=== PATIENT | female | born 1935 | race Caucasian/White ===

== ENCOUNTER 2016-07-09 09:45 | Inpatient (IN) | payer MEDICARE, OTHER ==
[~2016-07-09] VITALS: Ht 160 cm; Wt 59.0 kg
[~2016-07-09 09:45] MED LIST: ASPIR 8181 MG ORAL; BENICAR20 MG ORAL; CIPRO500 MG PO; COLACE100 MG ORAL; DONEPEZIL HCL5 MG PO; FLAGYL500 MG ORAL; MILK OF MA400 MG/51 ORAL; MIRTAZAPINE15 MG ORAL; MOM30 ML ORAL; NAMENDA XR28 MG PO; NORCO 5-325 TA1 EACH ORAL; PRIMIDONE50 MG PO; RESTORIL15 MG ORAL; SIMVASTATIN10 MG ORAL; TENORMIN25 MG ORAL; TYLENOL325 MG ORAL
[2016-07-09 10:00] VITALS: BP 121/98
[2016-07-09] MEDS ORDERED: ATORVASTATIN CA20 MG ORAL (10:00)
[2016-07-09] MEDS ORDERED: NUEDEXTA 20-101 EAC1 PO (10:02)
[2016-07-09] MEDS ORDERED: MELATONIN3 M1 ORAL (10:02)
[2016-07-09] MEDS ORDERED: ZOFRAN8 MG ORAL (10:02)
[2016-07-09] MEDS ORDERED: MULTIVITAMINS1 EAC8 ORAL (10:02)
[2016-07-09] MEDS ORDERED: LAMICTAL25 MG ORAL (10:02)
[2016-07-09] MEDS ORDERED: LORazepam Inj 2mg/ml 1ml ONE (10:27)
[2016-07-09] MEDS ORDERED: LORazepam Inj 2mg/ml 1ml IM ONE (10:30)
[2016-07-09 11:11] LABS: EOSINOPHILS % (AUTO) 2.5 % (0.0-3.0); LYMPHOCYTES % (AUTO) 27.3 % (20.0-45.0); MEAN CORPUSCULAR HGB CONC 32.1 G/DL (32.0-36.0); MEAN CORPUSCULAR VOLUME 87 FL (80-99); MONOCYTES % (AUTO) 8.6 % (1.0-10.0); NEUTROPHILS % (AUTO) 60.6 % (45.0-75.0); PLATELET COUNT 420 K/UL (150-450); RED BLOOD COUNT 4.44 M/UL (4.20-5.40); RED CELL DISTRIBUTION WIDTH 12.1 % (11.6-14.8); WHITE BLOOD COUNT 6.3 K/UL (4.8-10.8)
[2016-07-09 11:13] LABS: PROTHROMBIN TIME 9.8 SEC (9.30-11.50)
[2016-07-09 11:18] LABS: REFLEX LACTIC ACID YES OR NO YES
[2016-07-09 11:20] LABS: TROPONIN I < 0.30 ng/mL (<=0.30)
--- NOTE | 2016-07-09 11:21 | Diagnostic Imaging Report ---
Indication: pain Findings: 3 views of the left hand were obtained. The bones are osteopenic. There is no fracture or malalignment identified. Soft tissues are unremarkable. In pression: No acute injury
--- NOTE | 2016-07-09 11:21 | Diagnostic Imaging Report ---
Indication: Chest Pain Comparison: 09/01/14 A single view chest radiograph was obtained. Findings: The lungs are clear. Cardiomegaly status lower is within normal limits. Bones are osteopenic. Impression: No acute disease
[2016-07-09 11:23] LABS: ALANINE AMINOTRANSFERASE 12 U/L (3-33); ALBUMIN/GLOBULIN RATIO 1.2 (1.0-2.7); ANION GAP 13 (5-15); ASPARTATE AMINO TRANSFERASE 15 U/L (5-40); CALCIUM 9.6 mg/dL (8.6-10.2); CARBON DIOXIDE 28 mEQ/L (20-30); CHLORIDE 102 mEQ/L (98-107); CREATININE 0.8 mg/dL (0.5-0.9); HEMOLYSIS 5; POTASSIUM 4.8 mEQ/L (3.4-4.9); SODIUM 143 mEQ/L (135-145); TOTAL PROTEIN 7.2 g/dL (6.6-8.7)
[2016-07-09 11:47] LABS: APPEARANCE,URINE CLOUDY; KETONES,URINE NEGATIVE (NEGATIVE); LEUKOCYTE ESTERASE ,URINE NEGATIVE (NEGATIVE); NITRITE,URINE NEGATIVE (NEGATIVE); PH,URINE 6 (4.5-8.0); PROTEIN,URINE NEGATIVE (NEGATIVE); UROBILINOGEN,URINE NORMAL MG/DL (0.0-1.0)
[2016-07-09 12:24] VITALS: BP 113/52
--- NOTE | 2016-07-09 14:08 | Emergency Room Report ---
History of Present Illness General Chief Complaint: Upper Extremity Injury Source: Medical Record, EMS, PMD Present Illness HPI The [facility] for the possibility of having a cellulitis or injury to her left hand. This is noted that a couple days ago. Uncertain as to how this arose. The patient is demented and unable history. His nuclear documentation of how this might have occurred. No history of fever. Prior h/o sepsis and dementia. Allergies: Coded Allergies: LORAZEPAM (Verified Allergy, Unknown, 07/09/16) Patient History Limited by: medical condition Past Medical History: see triage record Social History Narrative longterm facility Reviewed Nursing Documentation: PMH: Agreed, PSxH: Agreed Nursing Documentation-PMH Hx Cardiac Problems: Yes - DVT, Edema, Anemia, hyperlipidemia Hx Hypertension: Yes - Cataract Hx Diabetes: Yes Hx Cancer: No Hx Gastrointestinal Problems: Yes - GERD Hx Neurological Problems: Yes - muscle weakness Hx Dementia: Yes Hx Alzheimer's Disease: Yes Hx Dizziness: Yes Hx Weakness: Yes Review of Systems All Other Systems: limited Physical Exam Vital Signs Date Time Temp Pulse Resp B/P Pulse Ox O2 Delivery O2 Flow Rate FiO2 07/09/16 09:40 98.8 82 22 119/66 99 Room Air Sp02 EP Interpretation: reviewed, normal General Appearance: well appearing, no apparent distress, Chronically Ill Head: normocephalic Eyes: bilateral eye PERRL, bilateral eye normal inspection ENT: moist mucus membranes - poor dentition Neck: supple Respiratory: lungs clear, normal breath sounds Cardiovascular #1: regular rate, rhythm Cardiovascular #2: 2+ radial (R) Gastrointestinal: normal inspection, normal bowel sounds, non tender, no mass, non-distended Musculoskeletal: digits/nails normal - except L hand li, normal range of motion , other - atrophy LE, but good ROM Neurologic: motor strength/tone normal, sensory intact, cerebellar normal Psychiatric: anxious - gibberish and combative with staff Skin: hematoma - and ecchymoses 4th and 5th MCP and little finger Medical Decision Making Diagnostic Impression: Primary Impression: Contusion of left hand Qualified Codes: S60.222A - Contusion of left hand, initial encounter Additional Impression: Dementia Qualified Codes: F03.91 - Unspecified dementia with behavioral disturbance ER Course Patient with hand physical findings. Unable to give hx so complicated. DDx: fracture, contusion, cellulitis. Xrays and labs indicated. Patient required sedation in order to complete the tests. She responded well to Ativan 2 mg IM. Laboratory significant for a lactate of which 2.1 with a normal white count. X- rays were unremarkable. The patient remained clinically stable in the emergency department. Dr. Dominguez requested patient be observed for orthopedic and infectious disease consultation. Laboratory Tests Test 07/09/16 10:35 07/09/16 11:20 White Blood Count 6.3 K/UL (4.8-10.8) Red Blood Count 4.44 M/UL (4.20-5.40) Hemoglobin 12.4 G/DL (12.0-16.0) Hematocrit 38.6 % (37.0-47.0) Mean Corpuscular Volume 87 FL (80-99) Mean Corpuscular Hemoglobin 28.0 PG (27.0-31.0) Mean Corpuscular Hemoglobin Concent 32.1 G/DL (32.0-36.0) Red Cell Distribution Width 12.1 % (11.6-14.8) Platelet Count 420 K/UL (150-450) Mean Platelet Volume 7.0 FL (6.5-10.1) Neutrophils (%) (Auto) 60.6 % (45.0-75.0) Lymphocytes (%) (Auto) 27.3 % (20.0-45.0) Monocytes (%) (Auto) 8.6 % (1.0-10.0) Eosinophils (%) (Auto) 2.5 % (0.0-3.0) Basophils (%) (Auto) 1.0 % (0.0-2.0) Prothrombin Time 9.8 SEC (9.30-11.50) Prothrombin Time INR 1.0 (0.9-1.1) Sodium Level 143 mEQ/L (135-145) Potassium Level 4.8 mEQ/L (3.4-4.9) Chloride Level 102 mEQ/L (98-107) Carbon Dioxide Level 28 mEQ/L (20-30) Anion Gap 13 (5-15) Blood Urea Nitrogen 17 mg/dL (7-23) Creatinine 0.8 mg/dL (0.5-0.9) Estimate Glomerular Filtration Rate mL/min (>60) Glucose Level 91 mg/dL (74-106) Lactic Acid Level 2.10 mmol/L (0.66-2.22) Calcium Level 9.6 mg/dL (8.6-10.2) Total Bilirubin < 0.2 mg/dL (0.0-1.2) Aspartate Amino Transferase (AST) 15 U/L (5-40) Alanine Aminotransferase (ALT) 12 U/L (3-33) Alkaline Phosphatase 130 U/L (35-104) H Total Creatine Kinase 66 U/L (26-140) Troponin I < 0.30 ng/mL (<=0.30) Total Protein 7.2 g/dL (6.6-8.7) Albumin 4.0 g/dL (3.5-5.2) Globulin 3.2 g/dL Albumin/Globulin Ratio 1.2 (1.0-2.7) Hepatitis B Surface Antigen Pending Hepatitis C Antibody Pending HIV (1&2) Antibody Rapid Negative (NEGATIVE) Urine Color Yellow Urine Appearance Cloudy Urine pH 6 (4.5-8.0) Urine Specific [place] 1.020 (1.005-1.035) Urine Protein Negative (NEGATIVE) Urine Glucose (UA) Negative (NEGATIVE) Urine Ketones Negative (NEGATIVE) Urine Occult Blood Negative (NEGATIVE) Urine Nitrite Negative (NEGATIVE) Urine Bilirubin Negative (NEGATIVE) Urine Urobilinogen Normal MG/DL (0.0-1.0) Urine Leukocyte Esterase Negative (NEGATIVE) EKG Diagnostic Results Rate: normal Rhythm: NSR ST Segments: no acute changes Rhythm Strip Diag. Results EP Interpretation: yes Rhythm: NSR, no PVC's, no ectopy Chest X-Ray Diagnostic Results EP Interpretation: Yes Findings: no consolidation, no effusion, no pneumothorax, no acute cardiopulmonary disease Number of Views: 1 Other X-Ray Diagnostic Results Other X-Ray Diagnostic Results : X-Ray Ordered: L hand EP Interpretation: Yes Findings: no fractures, no dislocation, no soft tissue swelling, other - osteopenia and DJD Number of Views: 3 Last Vital Signs Date Time Temp Pulse Resp B/P Pulse Ox O2 Delivery O2 Flow Rate FiO2 07/10/16 00:00 98.2 87 20 147/88 98 Room Air Status: improved Disposition: PLACE IN OBSERVATION Condition: Improved Referrals: NON PHYSICIAN (PCP) Americo Andrade M.D. Jul 09, 2016 14:08
[2016-07-09 14:17] VITALS: BP 110/62
[2016-07-09] MEDS ORDERED: Mylanta II UD 30ml ORAL PRN (16:45)
[2016-07-09] MEDS ORDERED: LORazepam Inj 2mg/ml 1ml IV PRN (16:45)
[2016-07-09] MEDS ORDERED: Morphine Sulfate 2mg/ml Inj IVP PRN (16:45)
[2016-07-09] MEDS ORDERED: Zolpidem 5mg tab ORAL PRN (16:45)
[2016-07-09 17:36] VITALS: BP 123/64
[2016-07-09 20:00] VITALS: BP 108/80
--- NOTE | 2016-07-09 20:48 | History and Physical Report ---
DATE OF ADMISSION: 07/09/2016 HISTORY OF PRESENT ILLNESS: The patient is a poor historian. She is an Faroese originally and she cannot speak Surinamese. She is very confused and agitated, which is her baseline. The patient is admitted for possible left hand cellulitis versus injury or trauma. Again, I cannot obtain history, she is a very poor historian. PAST MEDICAL HISTORY: History of hypertension, history of NIDDM, history of underlying hyperlipidemia, GERD, psychosis, dementia, mood disorder, and gastroparesis. PAST SURGICAL HISTORY: History of PEG in the past. MEDICATIONS: Please see medication list in the chart. ALLERGIES: Refer to in the chart. SOCIAL HISTORY: Unable to obtain. FAMILY HISTORY: Noncontributory. REVIEW OF SYSTEM: Unable to obtain. PHYSICAL EXAMINATION: VITAL SIGNS: . HEENT: PERRLA. NECK: Supple. No lymphadenopathy. CHEST: Clear to auscultation. GI: Soft. Distended, however nontender. Positive bowel sounds. The patient does have tumescence and redness and tender to touch on the left hand. EXTREMITIES: A 1+ edema. Reflexes are equal on both sides. NEUROLOGIC: Nonfocal. LABORATORY DATA: Labs are essentially normal. ASSESSMENT: 1. Cellulitis of the left hand versus injury versus trauma. 2. Agitation. PLAN: I have asked Dr. Garber and Dr. Bowden to see the patient for the above-mentioned diagnoses and treatment. Дмитрий Dominguez M.D. DR: SIMON JOB#: [id number] CC:
[2016-07-09] MEDS: Heparin 5000 units/ml inj SUBQ SCH (21:00)
[2016-07-09] MEDS: Docusate 100mg cap ORAL SCH (21:47)
[2016-07-10] VITALS: BP 147/88
--- NOTE | 2016-07-10 00:18 | Consultation ---
DATE OF CONSULTATION: INFECTIOUS DISEASES CONSULTATION CONSULTING PHYSICIAN: Stephanie Bowden M.D. REQUESTING PHYSICIAN: Дмитрий Dominguez M.D. REASON FOR CONSULTATION: Left hand cellulitis, recommendation for antibiotics therapy. HISTORY OF PRESENT ILLNESS: The patient is a 80-year-old jail resident, who was sent for possibility of having cellulitis or injury to her left hand, which noted couple of days ago. It is unclear how this patient sustained that left hand injury. The patient is demented, cannot provide any history at this point. History was obtained from the medical record. In the emergency room, the patient had some bruises and bluish discoloration of the left pinky and the second digit. Her vitals looked okay. She had normal white count. X-ray of the left hand was unremarkable. The patient was admitted to the hospital for evaluation of left hand contusion with possible cellulitis. I was asked by the primary provider for antibiotics treatment for her left hand ecchymosis or bruises and possible cellulitis. PAST MEDICAL HISTORY: Significant for coronary artery disease, DVT, edema, anemia, hyperlipidemia, cataract, hypertension, diabetes, gastroesophageal reflux disease, dementia with Alzheimer's, and weakness. PAST SURGICAL HISTORY: Unknown. ALLERGIES: She is allergic to lorazepam. MEDICATIONS: Please refer to the [facility] for medication list. No antibiotics was given in the emergency room. REVIEW OF SYSTEMS: Unable to obtain. The patient is demented, cannot provide any history. PHYSICAL EXAMINATION: GENERAL: Elderly female, demented, speaking in her own language, up in bed, confused, not in distress. VITAL SIGNS: Temperature 98, pulse 80, respirations 17, blood pressure 110/62, and pulse oximetry 100% on room air. HEENT: Normocephalic and atraumatic. Pale sclera. Moist oral mucosa. No exudate or thrush. NECK: Supple. No lymphadenopathy. CARDIOVASCULAR: Regular rate and rhythm. No murmur or gallop. LUNGS: Clear bilaterally. No wheezing or rhonchi. Normal breathing efforts. ABDOMEN: Soft, nontender, and nondistended. Positive bowel sounds. No hepatosplenomegaly. EXTREMITIES: No edema. No cyanosis. Left hand fourth and fifth digit ecchymosis and bruises. No redness, erythema, or warmth and no swelling. LABORATORY DATA: Labs showed white count of 6.3, hemoglobin of 12.4, and platelet count of 420,000. BUN of 17, creatinine of 0.8. Alkaline phosphatase of 130. Serology showed human immunodeficiency virus screening negative. IMAGING DATA: Hand x-ray showed no acute injury. Chest x-ray showed no acute disease. ASSESSMENT AND PLAN: 1. Left hand injury with bruises and ecchymosis. No evidence of cellulitis at this point. No need for antibiotics therapy. Continue to monitor in the hospital for the next 24 hours. May need orthopedic evaluation or Vascular if she has worsening discoloration or ischemic changes. 2. Coronary artery disease with hypertension. Continue cardiac medications as before. 3. Diabetes. Recommend tight glycemic control to keep blood sugar between 80 to 120. 4. Gastroesophageal reflux disease. Continue proton pump inhibitor. 5. Dementia. Continue supportive care. Stephanie Bowden M.D. DR: LOREN JOB#: [id number] CC:
[2016-07-10 04:00] VITALS: BP 144/96
[2016-07-10 08:00] VITALS: BP 134/74
[2016-07-10] MEDS: Aspirin EC 81mg tab ORAL SCH (08:10)
[2016-07-10] MEDS: Docusate 100mg cap ORAL SCH ×2 (08:11→20:34)
[2016-07-10] MEDS: Atenolol 25mg tab ORAL SCH (08:11)
[2016-07-10] MEDS: Heparin 5000 units/ml inj SUBQ SCH ×2 (08:22→20:39)
--- NOTE | 2016-07-10 11:07 | General Progress Note ---
Assessment/Plan Problem List: (1) Cellulitis ICD Codes: L03.90 - Cellulitis, unspecified SNOMED: 808169520 (2) Contusion of left hand ICD Codes: S60.222A - Contusion of left hand, initial encounter SNOMED: 6229288 Qualifiers: Qualified Codes: S60.222A - Contusion of left hand, initial encounter (3) Dementia ICD Codes: F03.90 - Unspecified dementia without behavioral disturbance SNOMED: 58083843 Qualifiers: Qualified Codes: F03.91 - Unspecified dementia with behavioral disturbance (4) Anxiety ICD Codes: F41.9 - Anxiety disorder, unspecified SNOMED: 71015560 (5) Anemia ICD Codes: D64.9 - Anemia, unspecified SNOMED: 977613924 Status: progressing Assessment/Plan cellulitis of left hand vs contusion will discuss w id Subjective ROS Limited/Unobtainable: Yes Allergies: Coded Allergies: LORAZEPAM (Verified Allergy, Unknown, 07/09/16) Objective Last 24 Hour Vital Signs Date Time Temp Pulse Resp B/P Pulse Ox O2 Delivery O2 Flow Rate FiO2 07/10/16 08:11 78 144/96 07/10/16 08:00 97.9 73 19 134/74 94 Nasal Cannula 07/10/16 04:00 98.2 78 22 144/96 97 Room Air 07/10/16 00:00 98.2 87 20 147/88 98 Room Air 07/09/16 20:00 97.6 101 16 108/80 99 Room Air 07/09/16 17:36 97.8 76 20 123/64 95 Room Air 07/09/16 15:24 98.0 80 17 110/62 100 Room Air 07/09/16 14:17 80 17 110/62 100 Room Air 07/09/16 12:24 98.0 82 17 113/52 100 Room Air Intake and Output 07/09/16 07/10/16 19:00 07:00 Intake Total 240 ml Balance 240 ml Intake Oral 240 ml # Voids 3 Laboratory Tests 07/09/16 11:20: Urine Color Yellow, Urine Appearance Cloudy, Urine pH 6, Urine Specific [place] 1.020, Urine Protein Negative, Urine Glucose (UA) Negative, Urine Ketones Negative, Urine Occult Blood Negative, Urine Nitrite Negative, Urine Bilirubin Negative, Urine Urobilinogen Normal, Urine Leukocyte Esterase Negative Height (Feet): 5 Height (Inches): 3.00 Weight (Pounds): 130 EENT: PERRL/EOMI Cardiovascular: normal rate Respiratory/Chest: lungs clear Abdomen: soft Дмитрий Dominguez MD Jul 10, 2016 11:07
[2016-07-10 12:00] VITALS: BP 116/69
--- NOTE | 2016-07-10 15:05 | Infectious Diseases Prog Note ---
Assessment/Plan Problems: (1) Contusion of left hand Assessment & Plan: no need for antibiotics, monitor clinically (2) Anxiety Assessment & Plan: continue psych meds (3) Dementia Assessment & Plan: continue supportive care Subjective ROS Limited/Unobtainable: Yes Allergies: Coded Allergies: LORAZEPAM (Verified Allergy, Unknown, 07/09/16) Subjective she is confused, and demented, gets agitated easily . Objective Vital Signs Last 24 Hour Vital Signs Date Time Temp Pulse Resp B/P Pulse Ox O2 Delivery O2 Flow Rate FiO2 07/10/16 12:00 97.7 80 20 116/69 97 Room Air 07/10/16 08:11 78 144/96 07/10/16 08:00 97.9 73 19 134/74 94 Nasal Cannula 07/10/16 04:00 98.2 78 22 144/96 97 Room Air 07/10/16 00:00 98.2 87 20 147/88 98 Room Air 07/09/16 20:00 97.6 101 16 108/80 99 Room Air 07/09/16 17:36 97.8 76 20 123/64 95 Room Air 07/09/16 15:24 98.0 80 17 110/62 100 Room Air Height (Feet): 5 Height (Inches): 3.00 Weight (Pounds): 130 General Appearance: WD/WN, no acute distress HEENT: normocephalic, atraumatic, anicteric, mucous membranes moist Respiratory/Chest: chest wall non-tender, lungs clear, normal breath sounds, no respiratory distress, no accessory muscle use Cardiovascular: normal peripheral pulses, normal rate, regular rhythm, no gallop/murmur, no JVD Abdomen: normal bowel sounds, soft, non tender, no organomegaly, non distended Extremities: no cyanosis, no clubbing Skin: no rash, no lesions, no ulcers, other - left hand bruises Current Medications Medications (Trade) Dose Ordered Sig/Constantin Route PRN Reason Start Time Stop Time Status Last Admin Dose Admin Acetaminophen (Tylenol) 650 mg Q4H PRN ORAL fever 07/09/16 16:45 08/08/16 16:44 Al Hydroxide/Mg Hydroxide (Mylanta II) 30 ml Q6H PRN ORAL dyspepsia 07/09/16 16:45 08/08/16 16:44 Aspirin (Ecotrin) 81 mg DAILY ORAL 07/10/16 09:00 08/09/16 08:59 07/10/16 08:10 Atenolol (Tenormin) 25 mg DAILY ORAL 07/10/16 09:00 08/09/16 08:59 07/10/16 08:11 Atorvastatin Calcium (Lipitor) 10 mg BEDTIME ORAL 07/09/16 21:00 08/08/16 20:59 07/09/16 21:47 Dextrose (Dextrose 50%) STAT PRN IV Hypoglycemia 07/09/16 16:45 08/08/16 16:44 Docusate Sodium (Colace) 100 mg Q12HR ORAL 07/09/16 21:00 08/08/16 20:59 07/10/16 08:11 Haloperidol Lactate (Haldol) 5 mg Q4H PRN IM Agitation 07/09/16 22:30 08/08/16 22:29 Heparin Sodium (Porcine) (Heparin 5000 units/ml) 5,000 units EVERY 12 HOURS SUBQ 07/09/16 21:00 08/08/16 20:59 07/10/16 08:22 Lamotrigine (LaMICtal) 25 mg DAILY ORAL 07/10/16 09:00 08/09/16 08:59 07/10/16 08:10 Lorazepam (Ativan 2mg/ml 1ml) 0.5 mg Q4H PRN IV For Anxiety 07/09/16 16:45 07/16/16 16:44 Mirtazapine (Remeron) 7.5 mg BEDTIME ORAL 07/09/16 21:00 08/08/16 20:59 07/09/16 21:46 Morphine Sulfate (Morphine Sulfate) 1 mg EVERY 4 HOURS PRN IVP For Pain 07/09/16 16:45 07/16/16 16:44 Ondansetron HCl (Zofran) 4 mg Q6H PRN IVP Nausea & Vomiting 07/09/16 16:45 08/08/16 16:44 Polyethylene Glycol (Miralax) 17 gm HSPRN PRN ORAL Constipation 07/09/16 16:45 08/08/16 16:44 Zolpidem Tartrate (Ambien) 5 mg HSPRN PRN ORAL Insomnia 07/09/16 16:45 08/08/16 16:44 Stephanie Bowden M.D.b 23, 2017 15:05
[2016-07-10 15:58] VITALS: BP 132/51
[2016-07-10] MEDS: Haloperidol 5mg/ml Inj IM PRN (18:49)
[2016-07-10 20:00] VITALS: BP 114/49
[2016-07-10] MEDS ORDERED: LORazepam Inj 2mg/ml 1ml IM PRN (21:45)
--- NOTE | 2016-07-10 22:26 | Consultation ---
History of Present Illness General Date patient seen: Jul 10, 2016 Chief Complaint: dyspnea hx PE upper extermity injury Referring physician: Dr Dominguez Reason for Consultation: Dyspnea Present Illness HPI 80 yo female with past medical history significant for DVT, hypertension, history of NIDDM, hyperlipidemia, GERD, psychosis, dementia, mood disorder, and gastroparesis presents to [facility] [place] with complaint of upper extremity pain. While being evaluated in the emergency room the patient was noted to have a history of PE and the hospitalist asked me to consult the patients respiratory status in the context of persistent cough. I attempt to get history regarding the patients history of DVT, however patient appears very confused and speech is not coherent. Patient appears to have a baseline dementia with depressiive and anxiety features. A preliminary CXR has been taken and does not exhibit acute infiltrate or effusion. Conservative management with symptom control and consultations are recommended at this time. . Allergies: Coded Allergies: LORAZEPAM (Verified Allergy, Unknown, 07/09/16) Medication History Scheduled Aspirin* (Aspir 81*), 81 MG ORAL DAILY, (Reported) Atenolol (Tenormin), 25 MG ORAL DAILY, (Reported) Atorvastatin Calcium* (Atorvastatin Calcium*), 10 MG ORAL BEDTIME, (Reported) Dextromethorphan Hbr/Quinidine (Nuedexta 20-10 Mg Capsule), 1 EACH PO BID, ( Reported) Docusate Sodium* (Colace*), 100 MG ORAL Q12HR, (Reported) Lamotrigine* (Lamictal*), 25 MG ORAL DAILY, (Reported) Magnesium Hydroxide (Milk of Magnesia), 30 ML ORAL DAILY, (Reported) Mirtazapine* (Remeron*), Unknown Dose ORAL BEDTIME, (Reported) Multivitamin With Minerals (Multivitamins With Minerals*), 1 TAB ORAL DAILY, ( Reported) Primidone* (Mysoline*), 50 MG PO DAILY, (Reported) Primidone* (Mysoline*), 3 TAB PO HS, (Reported) Scheduled PRN Acetaminophen (Tylenol), 650 MG ORAL Q6H PRN for Mild Pain/Temp > 100.5, ( Reported) Melatonin (Melatonin), 3 MG ORAL BEDTIME PRN for Insomnia, (Reported) Ondansetron Hcl* (Zofran*), 4 MG ORAL Q6H PRN for Nausea & Vomiting, (Reported) Patient History Healthcare decision maker Resuscitation status Advanced Directive on File Past Medical/Surgical History Past Medical/Surgical History: (1) DVT (deep venous thrombosis) (2) Deep venous thrombosis (3) Dementia (4) Anemia (5) Anxiety (6) Cellulitis (7) Chest pain (8) Sepsis (9) Fever Review of Systems Constitutional: Reports: chills, malaise, weakness Cardiovascular: Reports: PND Musculoskeletal: Reports: back pain, joint pain, joint swelling, muscle pain, muscle stiffness Psychiatric: Reports: anxiety, depressed feelings, emotional problems Physical Exam General Appearance: no apparent distress, confused Lines, tubes and drains: peripheral HEENT: normocephalic, atraumatic, anicteric, PERRL Neck: non-tender, normal alignment, supple Respiratory/Chest: chest wall non-tender, lungs clear, normal breath sounds, no respiratory distress Breasts: no masses Cardiovascular/Chest: normal peripheral pulses, normal rate, regular rhythm, no JVD Abdomen: normal bowel sounds, non tender, soft, no organomegaly Genitourinary/Rectal: normal genital exam, normal rectal exam Extremities: normal range of motion, non-tender, normal inspection Skin Exam: normal pigmentation Neurologic: gynecological assistant II-XII grossly normal, responsive, disoriented Last 24 Hour Vital Signs Date Time Temp Pulse Resp B/P Pulse Ox O2 Delivery O2 Flow Rate FiO2 07/10/16 20:00 97.3 95 22 114/49 96 Room Air 07/10/16 15:58 97.9 85 19 132/51 100 Room Air 07/10/16 12:00 97.7 80 20 116/69 97 Room Air 07/10/16 08:11 78 144/96 07/10/16 08:00 97.9 73 19 134/74 94 Nasal Cannula 07/10/16 04:00 98.2 78 22 144/96 97 Room Air 07/10/16 00:00 98.2 87 20 147/88 98 Room Air Intake and Output 07/09/16 07/10/16 19:00 07:00 Intake Total 240 ml Balance 240 ml Intake Oral 240 ml # Voids 3 Height (Feet): 5 Height (Inches): 3.00 Weight (Pounds): 130 Medications Current Medications Medications (Trade) Dose Ordered Sig/Constantin Route PRN Reason Start Time Stop Time Status Last Admin Dose Admin Acetaminophen (Tylenol) 650 mg Q4H PRN ORAL fever 07/09/16 16:45 08/08/16 16:44 Al Hydroxide/Mg Hydroxide (Mylanta II) 30 ml Q6H PRN ORAL dyspepsia 07/09/16 16:45 08/08/16 16:44 Aspirin (Ecotrin) 81 mg DAILY ORAL 07/10/16 09:00 08/09/16 08:59 07/10/16 08:10 Atenolol (Tenormin) 25 mg DAILY ORAL 07/10/16 09:00 08/09/16 08:59 07/10/16 08:11 Atorvastatin Calcium (Lipitor) 10 mg BEDTIME ORAL 07/09/16 21:00 08/08/16 20:59 07/10/16 20:35 Dextrose (Dextrose 50%) STAT PRN IV Hypoglycemia 07/09/16 16:45 08/08/16 16:44 Docusate Sodium (Colace) 100 mg Q12HR ORAL 07/09/16 21:00 08/08/16 20:59 07/10/16 20:34 Haloperidol Lactate (Haldol) 5 mg Q4H PRN IM Agitation 07/09/16 22:30 08/08/16 22:29 07/10/16 18:49 Heparin Sodium (Porcine) (Heparin 5000 units/ml) 5,000 units EVERY 12 HOURS SUBQ 07/09/16 21:00 08/08/16 20:59 07/10/16 20:39 Lamotrigine (LaMICtal) 25 mg DAILY ORAL 07/10/16 09:00 08/09/16 08:59 07/10/16 08:10 Lorazepam (Ativan 2mg/ml 1ml) 2 mg Q4H PRN IM For Anxiety 07/10/16 21:45 07/17/16 21:44 Mirtazapine (Remeron) 7.5 mg BEDTIME ORAL 07/09/16 21:00 08/08/16 20:59 07/10/16 20:35 Morphine Sulfate (Morphine Sulfate) 1 mg EVERY 4 HOURS PRN IVP For Pain 07/09/16 16:45 07/16/16 16:44 Ondansetron HCl (Zofran) 4 mg Q6H PRN IVP Nausea & Vomiting 07/09/16 16:45 08/08/16 16:44 Polyethylene Glycol (Miralax) 17 gm HSPRN PRN ORAL Constipation 07/09/16 16:45 08/08/16 16:44 Zolpidem Tartrate (Ambien) 5 mg HSPRN PRN ORAL Insomnia 07/09/16 16:45 08/08/16 16:44 Assessment/Plan Status: stable, progressing Assessment/Plan Assessment Dyspnea Acute Bronchitis Hx Deep vein thrombosis Upper extremity cellulitis? Upper extremity injury HTN Hyperlipidemia Dementia Anxiety Plan Follow up CXR if symtoms worsen Pulmonary Hygiene Monitor respiratory effort and vital signs CT chest if desaturation occurs Supplemental O2 as needed for SOB Breathing Tx prn SOB Aspiration precautions Will follow up on upper extremity injury ARIELLE PONCE Jul 10, 2016 22:26
[2016-07-11] VITALS: BP 110/51
[2016-07-11] MEDS: Haloperidol 5mg/ml Inj IM PRN ×3 (02:09→18:43)
--- NOTE | 2016-07-11 02:38 | Consultation ---
DATE OF CONSULTATION: HISTORY OF PRESENT ILLNESS: This is a 80-year-old female, who is well known to this physician from prior hospitalizations. The patient has a history of dementia as well as depression, behavior issues, and agitation. The patient is a poor historian and unable to be engaged and provide any history. She is only Farsi speaking. She is presenting with disorganized speech and behavior. Agitation has been combative and hitting the staff. She has received Haldol 5 mg IM, however, it has been ineffective, so she was given Ativan. PAST PSYCHIATRIC HISTORY: The patient has a history of bipolar disorder and dementia, who has been treated with Zyprexa and psychotic disorder. She has been also to psychiatric ortiz at [facility] approximately two years ago. PAST MEDICAL HISTORY: Includes hypertension, diabetes mellitus, hyperlipidemia, gastroesophageal reflux disease, and gastroparesis. PAST SURGICAL HISTORY: PEG. ALLERGIES: No known drug allergies. SUBSTANCE ABUSE HISTORY: No history of illicit drug use or alcohol. SOCIAL HISTORY: The patient was unable to provide any history. MENTAL STATUS EXAM: The patient is alert and oriented to self. Mood is anxious and agitated. Affect is constricted. Congruent mood. Thought process is concrete. Thought content is positive for delusions. Cognition is impaired. Insight and judgment, impaired. ASSESSMENT: 1. Bipolar disorder by history. 2. Dementia with behavior issues. PLAN: 1. We will increase the Remeron to 50 mg at bedtime. 2. Continue Haldol p.r.n. 3. We will also continue the Ativan p.r.n. 4. Continue to follow and readjust the medications. Malachi Hernandez M.D. DR: CATRACHITO JOB#: [id number] CC:
[2016-07-11 04:00] VITALS: BP 129/56
[2016-07-11 08:06] VITALS: BP 138/84
[2016-07-11] MEDS: Docusate 100mg cap ORAL SCH ×2 (09:12→21:00)
[2016-07-11] MEDS: Atenolol 25mg tab ORAL SCH (09:12)
[2016-07-11] MEDS: Aspirin EC 81mg tab ORAL SCH (09:12)
[2016-07-11] MEDS: Heparin 5000 units/ml inj SUBQ SCH ×2 (09:14→22:08)
[2016-07-11] MEDS: Morphine Sulfate 2mg/ml Inj SUBQ PRN ×2 (11:54→16:44)
[2016-07-11 11:57] VITALS: BP 115/66
--- NOTE | 2016-07-11 14:00 | Diagnostic Imaging Report ---
Indications: PAIN Technique: Two views of the left forearm Comparison: None Findings: No acute fractures or dislocations. No radiopaque foreign body. Normal mineralization. Impression: Negative
--- NOTE | 2016-07-11 14:11 | Diagnostic Imaging Report ---
Indication: PAIN Technique: 3 views left hand Comparison: none Findings: There is a minimally angulated nondisplaced fracture of the fifth middle phalanx. This is probably acute. No other acute fractures. No dislocations. Joint spaces are preserved. Bones are osteoporotic. Joint spaces are preserved. Impression: Positive for fifth middle phalangeal fracture, acuity indeterminate but suspect acute. Correlate with clinical findings. Osteoporosis Dr. Dominguez notified by phone at the time of dictation
--- NOTE | 2016-07-11 14:49 | General Progress Note ---
Assessment/Plan Problem List: (1) Cellulitis ICD Codes: L03.90 - Cellulitis, unspecified SNOMED: 164408070 (2) Contusion of left hand ICD Codes: S60.222A - Contusion of left hand, initial encounter SNOMED: 4988432 Qualifiers: Qualified Codes: S60.222A - Contusion of left hand, initial encounter (3) Dementia ICD Codes: F03.90 - Unspecified dementia without behavioral disturbance SNOMED: 02465926 Qualifiers: Qualified Codes: F03.91 - Unspecified dementia with behavioral disturbance (4) Anxiety ICD Codes: F41.9 - Anxiety disorder, unspecified SNOMED: 08814350 (5) Anemia ICD Codes: D64.9 - Anemia, unspecified SNOMED: 341307955 Assessment/Plan cellulitis of left hand vs contusion will discuss w id Subjective ROS Limited/Unobtainable: Yes Constitutional: Reports: no symptoms Allergies: Coded Allergies: LORAZEPAM (Verified Allergy, Unknown, 07/09/16) Subjective afebrile finger fracture on xray dr garza recommends valerie tape only Objective Last 24 Hour Vital Signs Date Time Temp Pulse Resp B/P Pulse Ox O2 Delivery O2 Flow Rate FiO2 07/11/16 12:24 98.8 07/11/16 11:57 98.8 77 20 115/66 96 Room Air 07/11/16 09:12 91 138/84 07/11/16 08:06 98.4 91 20 138/84 95 Room Air 07/11/16 04:00 97.6 98 18 129/56 96 Room Air 07/11/16 00:00 97.4 93 18 110/51 96 Room Air 07/10/16 20:00 97.3 95 22 114/49 96 Room Air 07/10/16 15:58 97.9 85 19 132/51 100 Room Air Intake and Output 07/10/16 07/11/16 19:00 07:00 Intake Total 480 ml 240 ml Balance 480 ml 240 ml Intake Oral 480 ml 240 ml # Voids 2 3 Height (Feet): 5 Height (Inches): 3.00 Weight (Pounds): 130 Дмитрий Dominguez MD Jul 11, 2016 14:49
[2016-07-11 15:55] VITALS: BP 122/68
--- NOTE | 2016-07-11 17:09 | Infectious Diseases Prog Note ---
Assessment/Plan Problems: (1) Contusion of left hand Assessment & Plan: no need for antibiotics, monitor clinically (2) Anxiety Assessment & Plan: continue psych meds (3) Dementia Assessment & Plan: continue supportive care Subjective ROS Limited/Unobtainable: Yes Allergies: Coded Allergies: LORAZEPAM (Verified Allergy, Unknown, 07/09/16) Subjective she is confused, and demented, gets agitated easily . Objective Vital Signs Last 24 Hour Vital Signs Date Time Temp Pulse Resp B/P Pulse Ox O2 Delivery O2 Flow Rate FiO2 07/11/16 15:55 98.8 82 20 122/68 96 Room Air 07/11/16 12:24 98.8 07/11/16 11:57 98.8 77 20 115/66 96 Room Air 07/11/16 09:12 91 138/84 07/11/16 08:06 98.4 91 20 138/84 95 Room Air 07/11/16 04:00 97.6 98 18 129/56 96 Room Air 07/11/16 00:00 97.4 93 18 110/51 96 Room Air 07/10/16 20:00 97.3 95 22 114/49 96 Room Air Height (Feet): 5 Height (Inches): 3.00 Weight (Pounds): 130 General Appearance: WD/WN, no acute distress HEENT: normocephalic, anicteric Respiratory/Chest: chest wall non-tender, lungs clear, normal breath sounds, no respiratory distress, no accessory muscle use Cardiovascular: normal peripheral pulses, normal rate, regular rhythm, no gallop/murmur, no JVD Abdomen: normal bowel sounds, soft, non tender, no organomegaly, non distended , no mass, no scars Extremities: no cyanosis, no clubbing, other - left hand bruises Microbiology Date/Time Source Procedure Growth Status 07/09/16 16:30 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 Complete 07/09/16 16:30 Rectum VRE Culture - Final NO VANCOMYCIN RESISTANT ENTEROCOCCUS ... Complete Current Medications Medications (Trade) Dose Ordered Sig/Constantin Route PRN Reason Start Time Stop Time Status Last Admin Dose Admin Acetaminophen (Tylenol) 650 mg Q4H PRN ORAL fever 07/09/16 16:45 08/08/16 16:44 Al Hydroxide/Mg Hydroxide (Mylanta II) 30 ml Q6H PRN ORAL dyspepsia 07/09/16 16:45 08/08/16 16:44 Aspirin (Ecotrin) 81 mg DAILY ORAL 07/10/16 09:00 08/09/16 08:59 07/11/16 09:12 Atenolol (Tenormin) 25 mg DAILY ORAL 07/10/16 09:00 08/09/16 08:59 07/11/16 09:12 Atorvastatin Calcium (Lipitor) 10 mg BEDTIME ORAL 07/09/16 21:00 08/08/16 20:59 07/10/16 20:35 Dextrose (Dextrose 50%) STAT PRN IV Hypoglycemia 07/09/16 16:45 08/08/16 16:44 Docusate Sodium (Colace) 100 mg Q12HR ORAL 07/09/16 21:00 08/08/16 20:59 07/11/16 09:12 Haloperidol Lactate (Haldol) 5 mg Q4H PRN IM Agitation 07/09/16 22:30 08/08/16 22:29 07/11/16 10:03 Heparin Sodium (Porcine) (Heparin 5000 units/ml) 5,000 units EVERY 12 HOURS SUBQ 07/09/16 21:00 08/08/16 20:59 07/11/16 09:14 Lamotrigine (LaMICtal) 25 mg DAILY ORAL 07/10/16 09:00 08/09/16 08:59 07/11/16 09:12 Mirtazapine (Remeron) 15 mg BEDTIME ORAL 07/11/16 21:00 08/10/16 20:59 Morphine Sulfate (Morphine Sulfate) 1 mg Q4H PRN SUBQ For Pain 07/11/16 11:45 07/18/16 11:44 07/11/16 16:44 Ondansetron HCl (Zofran) 4 mg Q6H PRN IVP Nausea & Vomiting 07/09/16 16:45 08/08/16 16:44 Polyethylene Glycol (Miralax) 17 gm HSPRN PRN ORAL Constipation 07/09/16 16:45 08/08/16 16:44 Zolpidem Tartrate (Ambien) 5 mg HSPRN PRN ORAL Insomnia 07/09/16 16:45 08/08/16 16:44 Stephanie Bowden M.D. Jul 11, 2016 17:09
--- NOTE | 2016-07-11 22:25 | Pulmonology Progress Note ---
Assessment/Plan Assessment/Plan Assessment/Plan Status: stable, progressing Assessment/Plan Assessment Dyspnea Acute Bronchitis Hx Deep vein thrombosis Upper extremity cellulitis? Upper extremity injury HTN Hyperlipidemia Dementia Anxiety Plan Follow up CXR if symtoms worsen Pulmonary Hygiene Monitor respiratory effort and vital signs CT chest if desaturation occurs Supplemental O2 as needed for SOB Breathing Tx prn SOB Aspiration precautions Will follow up on upper extremity injury Subjective ROS Limited/Unobtainable: Yes Constitutional: Reports: anorexia, fatigue Respiratory: Reports: dry cough, dyspnea at rest, dyspnea on exertion, shortness of breath Neurologic: Reports: confusion Allergies: Coded Allergies: LORAZEPAM (Verified Allergy, Unknown, 07/09/16) Objective Last 24 Hour Vital Signs Date Time Temp Pulse Resp B/P Pulse Ox O2 Delivery O2 Flow Rate FiO2 07/11/16 15:55 98.8 82 20 122/68 96 Room Air 07/11/16 12:24 98.8 07/11/16 11:57 98.8 77 20 115/66 96 Room Air 07/11/16 09:12 91 138/84 07/11/16 08:06 98.4 91 20 138/84 95 Room Air 07/11/16 04:00 97.6 98 18 129/56 96 Room Air 07/11/16 00:00 97.4 93 18 110/51 96 Room Air Intake and Output 07/10/16 07/11/16 19:00 07:00 Intake Total 480 ml 240 ml Balance 480 ml 240 ml Intake Oral 480 ml 240 ml # Voids 2 3 General Appearance: no acute distress HEENT: normocephalic, atraumatic, PERRL Respiratory/Chest: chest wall non-tender, decreased breath sounds, accessory muscle use Breasts: no masses Cardiovascular: normal peripheral pulses, normal rate, regular rhythm, no JVD Abdomen: normal bowel sounds, soft, non tender, no organomegaly Genitourinary: normal external genitalia Extremities: no cyanosis, no clubbing, other - right hand inflammation and swelling Skin: rash, lesions 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 Complete 07/09/16 16:30 Rectum VRE Culture - Final NO VANCOMYCIN RESISTANT ENTEROCOCCUS ... Complete Current Medications Medications (Trade) Dose Ordered Sig/Constantin Route PRN Reason Start Time Stop Time Status Last Admin Dose Admin Acetaminophen (Tylenol) 650 mg Q4H PRN ORAL fever 07/09/16 16:45 08/08/16 16:44 Al Hydroxide/Mg Hydroxide (Mylanta II) 30 ml Q6H PRN ORAL dyspepsia 07/09/16 16:45 08/08/16 16:44 Aspirin (Ecotrin) 81 mg DAILY ORAL 07/10/16 09:00 08/09/16 08:59 07/11/16 09:12 Atenolol (Tenormin) 25 mg DAILY ORAL 07/10/16 09:00 08/09/16 08:59 07/11/16 09:12 Atorvastatin Calcium (Lipitor) 10 mg BEDTIME ORAL 07/09/16 21:00 08/08/16 20:59 07/10/16 20:35 Dextrose (Dextrose 50%) STAT PRN IV Hypoglycemia 07/09/16 16:45 08/08/16 16:44 Docusate Sodium (Colace) 100 mg Q12HR ORAL 07/09/16 21:00 08/08/16 20:59 07/11/16 09:12 Haloperidol Lactate (Haldol) 5 mg Q4H PRN IM Agitation 07/09/16 22:30 08/08/16 22:29 07/11/16 18:43 Heparin Sodium (Porcine) (Heparin 5000 units/ml) 5,000 units EVERY 12 HOURS SUBQ 07/09/16 21:00 08/08/16 20:59 07/11/16 22:08 Lamotrigine (LaMICtal) 25 mg DAILY ORAL 07/10/16 09:00 08/09/16 08:59 07/11/16 09:12 Mirtazapine (Remeron) 15 mg BEDTIME ORAL 07/11/16 21:00 08/10/16 20:59 Morphine Sulfate (Morphine Sulfate) 1 mg Q4H PRN SUBQ For Pain 07/11/16 11:45 07/18/16 11:44 07/11/16 16:44 Ondansetron HCl (Zofran) 4 mg Q6H PRN IVP Nausea & Vomiting 07/09/16 16:45 08/08/16 16:44 Polyethylene Glycol (Miralax) 17 gm HSPRN PRN ORAL Constipation 07/09/16 16:45 08/08/16 16:44 Zolpidem Tartrate (Ambien) 5 mg HSPRN PRN ORAL Insomnia 07/09/16 16:45 08/08/16 16:44 ARIELLE PONCE Jul 11, 2016 22:25
[2016-07-12] VITALS: BP 123/91
[2016-07-12] MEDS: Haloperidol 5mg/ml Inj IM PRN ×2 (00:08→05:13)
--- NOTE | 2016-07-12 01:38 | Consultation ---
DATE OF CONSULTATION: 07/11/2016 ORTHOPEDIC CONSULTATION CONSULTING PHYSICIAN: Santo Pal M.D. REQUESTING PHYSICIAN: Дмитрий Dominguez M.D. CHIEF COMPLAINT: Left hand pain. HISTORY OF PRESENT ILLNESS: This 80-year-old is somewhat demented and somewhat combative female, who presents with altered mental status and possible hand injury. She had imaging studies in the ER yesterday, which were unremarkable. She had some ecchymosis and swelling, therefore, repeat imaging studies were obtained. Repeat imaging studies showed a possible fracture of the hand and therefore orthopedic consult was obtained for further care and recommendation. PAST MEDICAL HISTORY: Reviewed from the intake chart. PAST SURGICAL HISTORY: Reviewed from the intake chart. MEDICATIONS: Reviewed from the intake chart. PHYSICAL EXAMINATION: GENERAL: She had on arrival altered mental status. She is resting comfortably in bed. VITAL SIGNS: She is afebrile. Stable vital signs. EXTREMITIES: The patient has multiple contractions of lower extremities. Left hand examination shows some yellowing of left little finger. Skin is intact. It is difficult to assess range of motion given the patient's noncompliance. IMAGING STUDIES: Posterior imaging studies show a possible fracture of the middle phalanx of the fifth finger, minimally displaced. ASSESSMENT: Left fifth middle phalanx fracture. DISCUSSION: At this point, she has a minimally displaced fracture. Given her underlying issues, what I recommend is valerie taping the fourth and fifth fingers together and it will take anywhere from 4 to 6 weeks for this to heal. She can begin otherwise activities as tolerated given her underlying cognitive issues. She can follow up as needed if she has any persistent or recurrent symptoms. Santo Pal M.D. DR: OLAMIDE JOB#: [id number] CC: Дмитрий Dominguez M.D.; Fax#: [phone]
--- NOTE | 2016-07-12 03:11 | Cardiology Report ---
APPROVED REPORT EKG Measurement Heart [id number] Normal sinus rhythm Normal ECG
[2016-07-12 04:00] VITALS: BP 128/93
[2016-07-12 08:00] VITALS: BP 141/55
[2016-07-12] MEDS: Atenolol 25mg tab ORAL SCH (09:29)
[2016-07-12] MEDS: Docusate 100mg cap ORAL SCH ×2 (09:29→20:40)
[2016-07-12] MEDS: Aspirin EC 81mg tab ORAL SCH (09:29)
[2016-07-12] MEDS: Heparin 5000 units/ml inj SUBQ SCH ×2 (09:33→20:47)
--- NOTE | 2016-07-12 11:16 | General Progress Note ---
Assessment/Plan Problem List: (1) Cellulitis ICD Codes: L03.90 - Cellulitis, unspecified SNOMED: 115785687 (2) Contusion of left hand ICD Codes: S60.222A - Contusion of left hand, initial encounter SNOMED: 3041944 Qualifiers: Qualified Codes: S60.222A - Contusion of left hand, initial encounter (3) Dementia ICD Codes: F03.90 - Unspecified dementia without behavioral disturbance SNOMED: 17369129 Qualifiers: Qualified Codes: F03.91 - Unspecified dementia with behavioral disturbance (4) Anxiety ICD Codes: F41.9 - Anxiety disorder, unspecified SNOMED: 69719312 (5) Anemia ICD Codes: D64.9 - Anemia, unspecified SNOMED: 109922780 Status: progressing Assessment/Plan finger fracture dr garza saw athe patient and recommened taping can not dc due to flu outbreak in her snf Subjective ROS Limited/Unobtainable: Yes Allergies: Coded Allergies: LORAZEPAM (Verified Allergy, Unknown, 07/09/16) Subjective afebrile finger fracture on xray dr garza recommends valerie tape only Objective Last 24 Hour Vital Signs Date Time Temp Pulse Resp B/P Pulse Ox O2 Delivery O2 Flow Rate FiO2 07/12/16 09:29 84 141/55 07/12/16 08:00 97.3 84 20 141/55 Room Air 07/12/16 04:00 97.9 95 22 128/93 96 Room Air 07/12/16 00:00 97.8 93 21 123/91 96 Room Air 07/11/16 15:55 98.8 82 20 122/68 96 Room Air 07/11/16 12:24 98.8 07/11/16 11:57 98.8 77 20 115/66 96 Room Air Intake and Output 07/11/16 07/12/16 19:00 07:00 Intake Total 600 ml 180 ml Balance 600 ml 180 ml Intake Oral 600 ml 180 ml # Voids 3 1 Height (Feet): 5 Height (Inches): 3.00 Weight (Pounds): 130 General Appearance: confused EENT: PERRL/EOMI Cardiovascular: normal rate Respiratory/Chest: lungs clear Дмитрий Dominguez MD Jul 12, 2016 11:16
[2016-07-12 12:00] VITALS: BP 112/57
--- NOTE | 2016-07-12 12:45 | Pulmonology Progress Note ---
Assessment/Plan Assessment/Plan Assessment/Plan Status: stable, progressing Assessment/Plan Assessment Dyspnea Acute Bronchitis Hx Deep vein thrombosis Upper extremity cellulitis? Upper extremity injury HTN Hyperlipidemia Dementia Anxiety Plan Follow up CXR if symtoms worsen Pulmonary Hygiene Monitor respiratory effort and vital signs CT chest if desaturation occurs Supplemental O2 as needed for SOB Breathing Tx prn SOB Aspiration precautions Will follow up on upper extremity injury Subjective ROS Limited/Unobtainable: Yes Constitutional: Reports: anorexia, fatigue Respiratory: Reports: dry cough, shortness of breath Musculoskeletal: Reports: pain, stiffness, swelling Allergies: Coded Allergies: LORAZEPAM (Verified Allergy, Unknown, 07/09/16) Objective Last 24 Hour Vital Signs Date Time Temp Pulse Resp B/P Pulse Ox O2 Delivery O2 Flow Rate FiO2 07/12/16 12:00 98.2 82 18 112/57 98 Room Air 07/12/16 09:29 84 141/55 07/12/16 08:00 97.3 84 20 141/55 Room Air 07/12/16 04:00 97.9 95 22 128/93 96 Room Air 07/12/16 00:00 97.8 93 21 123/91 96 Room Air 07/11/16 15:55 98.8 82 20 122/68 96 Room Air Intake and Output 07/11/16 07/12/16 19:00 07:00 Intake Total 600 ml 180 ml Balance 600 ml 180 ml Intake Oral 600 ml 180 ml # Voids 3 1 General Appearance: no acute distress HEENT: normocephalic, atraumatic, PERRL Respiratory/Chest: chest wall non-tender, decreased breath sounds, accessory muscle use Breasts: no masses Cardiovascular: normal peripheral pulses, normal rate, regular rhythm, no JVD Abdomen: normal bowel sounds, soft, non tender, no organomegaly Genitourinary: normal external genitalia Extremities: no cyanosis Skin: no rash, lesions 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 Complete 07/09/16 16:30 Rectum VRE Culture - Final NO VANCOMYCIN RESISTANT ENTEROCOCCUS ... Complete Current Medications Medications (Trade) Dose Ordered Sig/Constantin Route PRN Reason Start Time Stop Time Status Last Admin Dose Admin Acetaminophen (Tylenol) 650 mg Q4H PRN ORAL fever 07/09/16 16:45 08/08/16 16:44 Al Hydroxide/Mg Hydroxide (Mylanta II) 30 ml Q6H PRN ORAL dyspepsia 07/09/16 16:45 08/08/16 16:44 Aspirin (Ecotrin) 81 mg DAILY ORAL 07/10/16 09:00 08/09/16 08:59 07/12/16 09:29 Atenolol (Tenormin) 25 mg DAILY ORAL 07/10/16 09:00 08/09/16 08:59 07/12/16 09:29 Atorvastatin Calcium (Lipitor) 10 mg BEDTIME ORAL 07/09/16 21:00 08/08/16 20:59 07/10/16 20:35 Dextrose (Dextrose 50%) STAT PRN IV Hypoglycemia 07/09/16 16:45 08/08/16 16:44 Docusate Sodium (Colace) 100 mg Q12HR ORAL 07/09/16 21:00 08/08/16 20:59 07/12/16 09:29 Haloperidol Lactate (Haldol) 5 mg Q4H PRN IM Agitation 07/09/16 22:30 08/08/16 22:29 07/12/16 05:13 Heparin Sodium (Porcine) (Heparin 5000 units/ml) 5,000 units EVERY 12 HOURS SUBQ 07/09/16 21:00 08/08/16 20:59 07/12/16 09:33 Lamotrigine (LaMICtal) 25 mg DAILY ORAL 07/10/16 09:00 08/09/16 08:59 07/12/16 09:29 Mirtazapine (Remeron) 15 mg BEDTIME ORAL 07/11/16 21:00 08/10/16 20:59 Morphine Sulfate (Morphine Sulfate) 1 mg Q4H PRN SUBQ For Pain 07/11/16 11:45 07/18/16 11:44 07/11/16 16:44 Ondansetron HCl (Zofran) 4 mg Q6H PRN IVP Nausea & Vomiting 07/09/16 16:45 08/08/16 16:44 Polyethylene Glycol (Miralax) 17 gm HSPRN PRN ORAL Constipation 07/09/16 16:45 08/08/16 16:44 Zolpidem Tartrate (Ambien) 5 mg HSPRN PRN ORAL Insomnia 07/09/16 16:45 08/08/16 16:44 ARIELLE PONCE Jul 12, 2016 12:45
[2016-07-12 16:00] VITALS: BP 114/55
[2016-07-12 20:00] VITALS: BP 115/74
[2016-07-13] VITALS: BP 112/69
[2016-07-13 04:00] VITALS: BP 106/54
[2016-07-13 08:30] VITALS: BP 114/64
[2016-07-13] MEDS: Atenolol 25mg tab ORAL SCH (09:44)
[2016-07-13] MEDS: Docusate 100mg cap ORAL SCH ×2 (09:44→21:25)
[2016-07-13] MEDS: Aspirin EC 81mg tab ORAL SCH (09:44)
[2016-07-13] MEDS: Heparin 5000 units/ml inj SUBQ SCH ×2 (09:47→21:35)
[2016-07-13 12:59] VITALS: BP 112/69
--- NOTE | 2016-07-13 15:02 | Infectious Diseases Prog Note ---
Assessment/Plan Problems: (1) Contusion of left hand Assessment & Plan: no need for antibiotics, monitor clinically (2) Anxiety Assessment & Plan: continue psych meds (3) Dementia Assessment & Plan: continue supportive care Subjective ROS Limited/Unobtainable: Yes Allergies: Coded Allergies: LORAZEPAM (Verified Allergy, Unknown, 07/09/16) Subjective she is confused, and demented, gets agitated easily . Objective Vital Signs Last 24 Hour Vital Signs Date Time Temp Pulse Resp B/P Pulse Ox O2 Delivery O2 Flow Rate FiO2 07/13/16 12:59 96.9 81 18 112/69 94 Room Air 07/13/16 09:44 85 114/64 07/13/16 08:30 98.0 85 19 114/64 97 Room Air 07/13/16 04:00 97.8 86 18 106/54 98 Room Air 07/13/16 00:00 98.0 89 18 112/69 98 Room Air 07/12/16 20:00 98.1 91 20 115/74 99 Room Air 07/12/16 16:00 98.1 86 20 114/55 99 Room Air Height (Feet): 5 Height (Inches): 3.00 Weight (Pounds): 130 General Appearance: WD/WN, no acute distress HEENT: normocephalic, atraumatic, anicteric Respiratory/Chest: chest wall non-tender, lungs clear, normal breath sounds, no respiratory distress Cardiovascular: normal peripheral pulses, regular rhythm Abdomen: normal bowel sounds, soft, non tender, no organomegaly, non distended Skin: no rash, no lesions Current Medications Medications (Trade) Dose Ordered Sig/Constantin Route PRN Reason Start Time Stop Time Status Last Admin Dose Admin Acetaminophen (Tylenol) 650 mg Q4H PRN ORAL fever 07/09/16 16:45 08/08/16 16:44 Al Hydroxide/Mg Hydroxide (Mylanta II) 30 ml Q6H PRN ORAL dyspepsia 07/09/16 16:45 08/08/16 16:44 Aspirin (Ecotrin) 81 mg DAILY ORAL 07/10/16 09:00 08/09/16 08:59 07/13/16 09:44 Atenolol (Tenormin) 25 mg DAILY ORAL 07/10/16 09:00 08/09/16 08:59 07/13/16 09:44 Atorvastatin Calcium (Lipitor) 10 mg BEDTIME ORAL 07/09/16 21:00 08/08/16 20:59 07/12/16 20:40 Dextrose (Dextrose 50%) STAT PRN IV Hypoglycemia 07/09/16 16:45 08/08/16 16:44 Docusate Sodium (Colace) 100 mg Q12HR ORAL 07/09/16 21:00 08/08/16 20:59 07/13/16 09:44 Haloperidol Lactate (Haldol) 5 mg Q4H PRN IM Agitation 07/09/16 22:30 08/08/16 22:29 07/12/16 05:13 Heparin Sodium (Porcine) (Heparin 5000 units/ml) 5,000 units EVERY 12 HOURS SUBQ 07/09/16 21:00 08/08/16 20:59 07/13/16 09:47 Lamotrigine (LaMICtal) 25 mg DAILY ORAL 07/10/16 09:00 08/09/16 08:59 07/13/16 09:44 Mirtazapine (Remeron) 15 mg BEDTIME ORAL 07/11/16 21:00 08/10/16 20:59 07/12/16 20:40 Morphine Sulfate (Morphine Sulfate) 1 mg Q4H PRN SUBQ For Pain 07/11/16 11:45 07/18/16 11:44 07/11/16 16:44 Ondansetron HCl (Zofran) 4 mg Q6H PRN IVP Nausea & Vomiting 07/09/16 16:45 08/08/16 16:44 Polyethylene Glycol (Miralax) 17 gm HSPRN PRN ORAL Constipation 07/09/16 16:45 08/08/16 16:44 Zolpidem Tartrate (Ambien) 5 mg HSPRN PRN ORAL Insomnia 07/09/16 16:45 08/08/16 16:44 Stephanie Bowden M.D. Jul 13, 2016 15:02
[2016-07-13 16:00] VITALS: BP 128/79
[2016-07-13 20:14] VITALS: BP 130/63
[2016-07-13] MEDS: Haloperidol 5mg/ml Inj IM PRN (20:41)
--- NOTE | 2016-07-13 22:55 | Pulmonology Progress Note ---
Assessment/Plan Assessment/Plan Assessment/Plan Status: stable, progressing Assessment/Plan Assessment Dyspnea Acute Bronchitis Hx Deep vein thrombosis Upper extremity cellulitis? Upper extremity injury HTN Hyperlipidemia Dementia Anxiety Plan Follow up CXR if symtoms worsen Pulmonary Hygiene Monitor respiratory effort and vital signs CT chest if desaturation occurs Supplemental O2 as needed for SOB Breathing Tx prn SOB Aspiration precautions Will follow up on upper extremity injury Subjective ROS Limited/Unobtainable: Yes Constitutional: Reports: anorexia, fatigue Neurologic: Reports: confusion, syncope Allergies: Coded Allergies: LORAZEPAM (Verified Allergy, Unknown, 07/09/16) Objective Last 24 Hour Vital Signs Date Time Temp Pulse Resp B/P Pulse Ox O2 Delivery O2 Flow Rate FiO2 07/13/16 20:14 95.5 81 20 130/63 99 Room Air 07/13/16 16:00 96.4 77 22 128/79 98 Room Air 07/13/16 12:59 96.9 81 18 112/69 94 Room Air 07/13/16 09:44 85 114/64 07/13/16 08:30 98.0 85 19 114/64 97 Room Air 07/13/16 04:00 97.8 86 18 106/54 98 Room Air 07/13/16 00:00 98.0 89 18 112/69 98 Room Air Intake and Output 07/12/16 07/13/16 19:00 07:00 Intake Total 240 ml 400 ml Balance 240 ml 400 ml Intake Oral 240 ml 400 ml # Voids 2 1 General Appearance: no acute distress HEENT: normocephalic, atraumatic, PERRL Respiratory/Chest: chest wall non-tender, decreased breath sounds, accessory muscle use, crackles/rales, rhonchi Breasts: no masses Cardiovascular: normal peripheral pulses, normal rate, regular rhythm Abdomen: normal bowel sounds, soft, non tender, no organomegaly, non distended Genitourinary: normal external genitalia Extremities: no cyanosis Skin: no rash 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, 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, disoriented Current Medications Medications (Trade) Dose Ordered Sig/Constantin Route PRN Reason Start Time Stop Time Status Last Admin Dose Admin Acetaminophen (Tylenol) 650 mg Q4H PRN ORAL fever 07/09/16 16:45 08/08/16 16:44 Al Hydroxide/Mg Hydroxide (Mylanta II) 30 ml Q6H PRN ORAL dyspepsia 2/22/17 16:45 08/08/16 16:44 Aspirin (Ecotrin) 81 mg DAILY ORAL 07/10/16 09:00 08/09/16 08:59 07/13/16 09:44 Atenolol (Tenormin) 25 mg DAILY ORAL 07/10/16 09:00 08/09/16 08:59 07/13/16 09:44 Atorvastatin Calcium (Lipitor) 10 mg BEDTIME ORAL 07/09/16 21:00 08/08/16 20:59 07/13/16 21:25 Dextrose (Dextrose 50%) STAT PRN IV Hypoglycemia 07/09/16 16:45 08/08/16 16:44 Docusate Sodium (Colace) 100 mg Q12HR ORAL 07/09/16 21:00 08/08/16 20:59 07/13/16 21:25 Haloperidol Lactate (Haldol) 5 mg Q4H PRN IM Agitation 07/09/16 22:30 08/08/16 22:29 07/13/16 20:41 Heparin Sodium (Porcine) (Heparin 5000 units/ml) 5,000 units EVERY 12 HOURS SUBQ 07/09/16 21:00 08/08/16 20:59 07/13/16 21:35 Lamotrigine (LaMICtal) 25 mg DAILY ORAL 07/10/16 09:00 08/09/16 08:59 07/13/16 09:44 Mirtazapine (Remeron) 15 mg BEDTIME ORAL 07/11/16 21:00 08/10/16 20:59 07/13/16 21:25 Morphine Sulfate (Morphine Sulfate) 1 mg Q4H PRN SUBQ For Pain 07/11/16 11:45 07/18/16 11:44 07/11/16 16:44 Ondansetron HCl (Zofran) 4 mg Q6H PRN IVP Nausea & Vomiting 07/09/16 16:45 08/08/16 16:44 Polyethylene Glycol (Miralax) 17 gm HSPRN PRN ORAL Constipation 07/09/16 16:45 08/08/16 16:44 Zolpidem Tartrate (Ambien) 5 mg HSPRN PRN ORAL Insomnia 07/09/16 16:45 08/08/16 16:44 ARIELLE PONCE Jul 13, 2016 22:55
[2016-07-14] VITALS: BP 112/66
[2016-07-14 04:00] VITALS: BP 137/69
[2016-07-14 08:00] VITALS: BP 140/84
[2016-07-14] MEDS: Aspirin EC 81mg tab ORAL SCH (08:56)
[2016-07-14] MEDS: Docusate 100mg cap ORAL SCH ×2 (08:56→20:25)
[2016-07-14] MEDS: Atenolol 25mg tab ORAL SCH (08:57)
[2016-07-14] MEDS: Heparin 5000 units/ml inj SUBQ SCH ×2 (09:00→20:34)
[2016-07-14 12:00] VITALS: BP 130/80
--- NOTE | 2016-07-14 13:19 | General Progress Note ---
Assessment/Plan Problem List: (1) Cellulitis ICD Codes: L03.90 - Cellulitis, unspecified SNOMED: 511674138 (2) Contusion of left hand ICD Codes: S60.222A - Contusion of left hand, initial encounter SNOMED: 5526289 Qualifiers: Qualified Codes: S60.222A - Contusion of left hand, initial encounter (3) Dementia ICD Codes: F03.90 - Unspecified dementia without behavioral disturbance SNOMED: 60538418 Qualifiers: Qualified Codes: F03.91 - Unspecified dementia with behavioral disturbance (4) Anxiety ICD Codes: F41.9 - Anxiety disorder, unspecified SNOMED: 79996152 (5) Anemia ICD Codes: D64.9 - Anemia, unspecified SNOMED: 823443268 Status: progressing Assessment/Plan finger fracture dr garza saw athe patient and recommened taping anemia awaiting acceptance from her snf due to infulenza outbreak Subjective Allergies: Coded Allergies: LORAZEPAM (Verified Allergy, Unknown, 07/09/16) Subjective left hand pain Objective Last 24 Hour Vital Signs Date Time Temp Pulse Resp B/P Pulse Ox O2 Delivery O2 Flow Rate FiO2 07/14/16 12:00 98.1 76 20 130/80 94 Room Air 07/14/16 08:57 79 137/69 07/14/16 08:00 97.9 78 19 140/84 97 Room Air 07/14/16 04:00 97.9 79 20 137/69 97 Room Air 07/14/16 00:00 97.7 72 18 112/66 96 Room Air 07/13/16 20:14 95.5 81 20 130/63 99 Room Air 07/13/16 16:00 96.4 77 22 128/79 98 Room Air Intake and Output 07/13/16 07/14/16 19:00 07:00 Intake Total 120 ml 360 ml Balance 120 ml 360 ml Intake Oral 120 ml 360 ml # Voids 1 Height (Feet): 5 Height (Inches): 3.00 Weight (Pounds): 130 EENT: PERRL/EOMI Neck: supple Cardiovascular: normal rate Respiratory/Chest: lungs clear Abdomen: soft Дмитрий Dominguez MD Jul 14, 2016 13:19
[2016-07-14 16:11] VITALS: BP 135/56
--- NOTE | 2016-07-14 17:22 | Pulmonology Progress Note ---
Assessment/Plan Assessment/Plan Assessment Dyspnea Acute Bronchitis Hx Deep vein thrombosis Upper extremity cellulitis? Upper extremity injury HTN Hyperlipidemia Dementia Anxiety Plan Follow up CXR if symtoms worsen Pulmonary Hygiene Monitor respiratory effort and vital signs CT chest if desaturation occurs Supplemental O2 as needed for SOB Breathing Tx prn SOB Aspiration precautions Will follow up on upper extremity injury Subjective ROS Limited/Unobtainable: Yes Respiratory: Reports: dyspnea at rest, productive cough, shortness of breath Neurologic: Reports: confusion, weakness Allergies: Coded Allergies: LORAZEPAM (Verified Allergy, Unknown, 07/09/16) Objective Last 24 Hour Vital Signs Date Time Temp Pulse Resp B/P Pulse Ox O2 Delivery O2 Flow Rate FiO2 07/14/16 16:11 97.5 78 18 135/56 98 Room Air 07/14/16 12:00 98.1 76 20 130/80 94 Room Air 07/14/16 08:57 79 137/69 07/14/16 08:00 97.9 78 19 140/84 97 Room Air 07/14/16 04:00 97.9 79 20 137/69 97 Room Air 07/14/16 00:00 97.7 72 18 112/66 96 Room Air 07/13/16 20:14 95.5 81 20 130/63 99 Room Air Intake and Output 07/13/16 07/14/16 19:00 07:00 Intake Total 120 ml 360 ml Balance 120 ml 360 ml Intake Oral 120 ml 360 ml # Voids 1 General Appearance: no acute distress HEENT: normocephalic, atraumatic, anicteric, PERRL Respiratory/Chest: chest wall non-tender, decreased breath sounds, accessory muscle use, rhonchi Breasts: no masses Cardiovascular: normal peripheral pulses, normal rate, regular rhythm, no JVD Abdomen: normal bowel sounds, soft, non tender, no organomegaly Genitourinary: normal external genitalia Extremities: no cyanosis 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, 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 Current Medications Medications (Trade) Dose Ordered Sig/Constantin Route PRN Reason Start Time Stop Time Status Last Admin Dose Admin Acetaminophen (Tylenol) 650 mg Q4H PRN ORAL fever 07/09/16 16:45 08/08/16 16:44 Al Hydroxide/Mg Hydroxide (Mylanta II) 30 ml Q6H PRN ORAL dyspepsia 07/09/16 16:45 08/08/16 16:44 Aspirin (Ecotrin) 81 mg DAILY ORAL 07/10/16 09:00 08/09/16 08:59 07/14/16 08:56 Atenolol (Tenormin) 25 mg DAILY ORAL 07/10/16 09:00 08/09/16 08:59 07/14/16 08:57 Atorvastatin Calcium (Lipitor) 10 mg BEDTIME ORAL 07/09/16 21:00 08/08/16 20:59 07/13/16 21:25 Dextrose (Dextrose 50%) STAT PRN IV Hypoglycemia 07/09/16 16:45 08/08/16 16:44 Docusate Sodium (Colace) 100 mg Q12HR ORAL 07/09/16 21:00 08/08/16 20:59 07/14/16 08:56 Haloperidol Lactate (Haldol) 5 mg Q4H PRN IM Agitation 07/09/16 22:30 08/08/16 22:29 07/13/16 20:41 Heparin Sodium (Porcine) (Heparin 5000 units/ml) 5,000 units EVERY 12 HOURS SUBQ 07/09/16 21:00 08/08/16 20:59 07/14/16 09:00 Lamotrigine (LaMICtal) 25 mg DAILY ORAL 07/10/16 09:00 08/09/16 08:59 07/14/16 08:56 Mirtazapine (Remeron) 15 mg BEDTIME ORAL 07/11/16 21:00 08/10/16 20:59 07/13/16 21:25 Morphine Sulfate (Morphine Sulfate) 1 mg Q4H PRN SUBQ For Pain 07/11/16 11:45 07/18/16 11:44 07/11/16 16:44 Ondansetron HCl (Zofran) 4 mg Q6H PRN IVP Nausea & Vomiting 07/09/16 16:45 08/08/16 16:44 Polyethylene Glycol (Miralax) 17 gm HSPRN PRN ORAL Constipation 07/09/16 16:45 08/08/16 16:44 Zolpidem Tartrate (Ambien) 5 mg HSPRN PRN ORAL Insomnia 07/09/16 16:45 08/08/16 16:44 ARIELLE PONCE Jul 14, 2016 17:22
[2016-07-14 20:00] VITALS: BP 135/66
[2016-07-14] MEDS: Miralax 17gm pkt ORAL PRN (20:25)
[2016-07-15] VITALS: BP 130/59
[2016-07-15 04:00] VITALS: BP 116/66
[2016-07-15 07:28] VITALS: BP 154/71
[2016-07-15] MEDS: Atenolol 25mg tab ORAL SCH (08:26)
[2016-07-15] MEDS: Aspirin EC 81mg tab ORAL SCH (08:27)
[2016-07-15] MEDS: Docusate 100mg cap ORAL SCH ×2 (08:27→20:42)
[2016-07-15] MEDS: Heparin 5000 units/ml inj SUBQ SCH ×2 (08:30→20:43)
--- NOTE | 2016-07-15 11:02 | General Progress Note ---
Assessment/Plan Problem List: (1) Cellulitis ICD Codes: L03.90 - Cellulitis, unspecified SNOMED: 228941926 (2) Contusion of left hand ICD Codes: S60.222A - Contusion of left hand, initial encounter SNOMED: 7492214 Qualifiers: Qualified Codes: S60.222A - Contusion of left hand, initial encounter (3) Dementia ICD Codes: F03.90 - Unspecified dementia without behavioral disturbance SNOMED: 95003866 Qualifiers: Qualified Codes: F03.91 - Unspecified dementia with behavioral disturbance (4) Anxiety ICD Codes: F41.9 - Anxiety disorder, unspecified SNOMED: 98112947 (5) Anemia ICD Codes: D64.9 - Anemia, unspecified SNOMED: 328956128 Status: progressing Assessment/Plan finger fracture dr garza saw athe patient and recommened taping and dc dc order given pending acceptance of snf due to influenza outbreak Subjective ROS Limited/Unobtainable: Yes Allergies: Coded Allergies: LORAZEPAM (Verified Allergy, Unknown, 07/09/16) Subjective left hand pain Objective Last 24 Hour Vital Signs Date Time Temp Pulse Resp B/P Pulse Ox O2 Delivery O2 Flow Rate FiO2 07/15/16 08:26 76 154/71 07/15/16 07:28 97.0 76 18 154/71 99 Room Air 07/15/16 04:00 97.7 80 18 116/66 97 Room Air 07/15/16 00:00 98.4 72 18 130/59 98 Room Air 07/14/16 20:00 98.2 18 135/66 98 Room Air 07/14/16 16:11 97.5 78 18 135/56 98 Room Air 07/14/16 12:00 98.1 76 20 130/80 94 Room Air Intake and Output 07/14/16 07/15/16 19:00 07:00 Intake Total 720 ml 240 ml Balance 720 ml 240 ml Intake Oral 720 ml 240 ml # Voids 4 4 Height (Feet): 5 Height (Inches): 3.00 Weight (Pounds): 130 EENT: PERRL/EOMI Neck: supple Respiratory/Chest: lungs clear Abdomen: soft Дмитрий Dominguez MD Jul 15, 2016 11:02
[2016-07-15 12:00] VITALS: BP 140/75
[2016-07-15 16:01] VITALS: BP 117/59
[2016-07-15 20:00] VITALS: BP 125/61
[2016-07-15] MEDS: Miralax 17gm pkt ORAL PRN (20:41)
--- NOTE | 2016-07-15 22:32 | Pulmonology Progress Note ---
Assessment/Plan Assessment/Plan Asessment Dyspnea Acute Bronchitis Hx Deep vein thrombosis Upper extremity cellulitis? Upper extremity injury HTN Hyperlipidemia Dementia Anxiety Plan Follow up CXR if symtoms worsen Pulmonary Hygiene Monitor respiratory effort and vital signs CT chest if desaturation occurs Supplemental O2 as needed for SOB Breathing Tx prn SOB Aspiration precautions Will follow up on upper extremity injury Subjective ROS Limited/Unobtainable: Yes Constitutional: Reports: anorexia, fatigue Respiratory: Reports: dyspnea at rest, dyspnea on exertion, productive cough, shortness of breath Neurologic: Reports: confusion, weakness Musculoskeletal: Reports: pain, stiffness, swelling Allergies: Coded Allergies: LORAZEPAM (Verified Allergy, Unknown, 07/09/16) Objective Last 24 Hour Vital Signs Date Time Temp Pulse Resp B/P Pulse Ox O2 Delivery O2 Flow Rate FiO2 07/15/16 20:00 98.4 80 18 125/61 99 Room Air 07/15/16 16:01 97.3 92 18 117/59 100 Room Air 07/15/16 12:00 96.7 75 18 140/75 97 Room Air 07/15/16 08:26 76 154/71 07/15/16 07:28 97.0 76 18 154/71 99 Room Air 07/15/16 04:00 97.7 80 18 116/66 97 Room Air 07/15/16 00:00 98.4 72 18 130/59 98 Room Air Intake and Output 07/14/16 07/15/16 19:00 07:00 Intake Total 720 ml 240 ml Balance 720 ml 240 ml Intake Oral 720 ml 240 ml # Voids 4 4 General Appearance: no acute distress HEENT: normocephalic, atraumatic, anicteric, PERRL Respiratory/Chest: chest wall non-tender, decreased breath sounds, accessory muscle use, rhonchi Breasts: no masses Cardiovascular: normal peripheral pulses, normal rate, regular rhythm, no JVD Abdomen: normal bowel sounds, soft, non tender, no organomegaly, non distended Genitourinary: normal external genitalia Extremities: no cyanosis Skin: no rash, no lesions 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, 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, disoriented Microbiology Date/Time Source Procedure Growth Status 07/15/16 18:15 Nasal Nares Influenza Types A,B Antigen (VIVIENNE) - Final Complete Current Medications Medications (Trade) Dose Ordered Sig/Constantin Route PRN Reason Start Time Stop Time Status Last Admin Dose Admin Acetaminophen (Tylenol) 650 mg Q4H PRN ORAL fever 07/09/16 16:45 08/08/16 16:44 Al Hydroxide/Mg Hydroxide (Mylanta II) 30 ml Q6H PRN ORAL dyspepsia 07/09/16 16:45 08/08/16 16:44 Aspirin (Ecotrin) 81 mg DAILY ORAL 07/10/16 09:00 08/09/16 08:59 07/15/16 08:27 Atenolol (Tenormin) 25 mg DAILY ORAL 07/10/16 09:00 08/09/16 08:59 07/15/16 08:26 Atorvastatin Calcium (Lipitor) 10 mg BEDTIME ORAL 07/09/16 21:00 08/08/16 20:59 07/15/16 20:42 Dextrose (Dextrose 50%) STAT PRN IV Hypoglycemia 07/09/16 16:45 08/08/16 16:44 Docusate Sodium (Colace) 100 mg Q12HR ORAL 07/09/16 21:00 08/08/16 20:59 07/15/16 20:42 Haloperidol Lactate (Haldol) 5 mg Q4H PRN IM Agitation 07/09/16 22:30 08/08/16 22:29 07/13/16 20:41 Heparin Sodium (Porcine) (Heparin 5000 units/ml) 5,000 units EVERY 12 HOURS SUBQ 07/09/16 21:00 08/08/16 20:59 07/15/16 20:43 Lamotrigine (LaMICtal) 25 mg DAILY ORAL 07/10/16 09:00 08/09/16 08:59 07/15/16 08:27 Mirtazapine (Remeron) 15 mg BEDTIME ORAL 07/15/16 21:00 08/10/16 20:59 07/15/16 20:42 Morphine Sulfate (Morphine Sulfate) 1 mg Q4H PRN SUBQ For Pain 07/11/16 11:45 07/18/16 11:44 07/11/16 16:44 Ondansetron HCl (Zofran) 4 mg Q6H PRN IVP Nausea & Vomiting 07/09/16 16:45 08/08/16 16:44 Polyethylene Glycol (Miralax) 17 gm HSPRN PRN ORAL Constipation 07/09/16 16:45 08/08/16 16:44 07/15/16 20:41 Zolpidem Tartrate (Ambien) 5 mg HSPRN PRN ORAL Insomnia 07/09/16 16:45 08/08/16 16:44 ARIELLE PONCE Jul 15, 2016 22:32
[2016-07-16] VITALS: BP 142/79
[2016-07-16 04:00] VITALS: BP 136/74
[2016-07-16 08:00] VITALS: BP 135/54
[2016-07-16] MEDS: Docusate 100mg cap ORAL SCH (08:36)
[2016-07-16] MEDS: Aspirin EC 81mg tab ORAL SCH (08:36)
[2016-07-16] MEDS: Atenolol 25mg tab ORAL SCH (08:36)
[2016-07-16] MEDS: Heparin 5000 units/ml inj SUBQ SCH (08:37)
[2016-07-16 12:23] VITALS: BP 121/58
--- NOTE | 2016-07-16 13:06 | General Progress Note ---
Assessment/Plan Problem List: (1) Cellulitis ICD Codes: L03.90 - Cellulitis, unspecified SNOMED: 291486042 (2) Contusion of left hand ICD Codes: S60.222A - Contusion of left hand, initial encounter SNOMED: 4877488 Qualifiers: Qualified Codes: S60.222A - Contusion of left hand, initial encounter (3) Dementia ICD Codes: F03.90 - Unspecified dementia without behavioral disturbance SNOMED: 81346696 Qualifiers: Qualified Codes: F03.91 - Unspecified dementia with behavioral disturbance (4) Anxiety ICD Codes: F41.9 - Anxiety disorder, unspecified SNOMED: 99810348 (5) Anemia ICD Codes: D64.9 - Anemia, unspecified SNOMED: 165417547 Status: progressing Assessment/Plan afebrle going to snf today see dc summary today Subjective ROS Limited/Unobtainable: Yes Allergies: Coded Allergies: LORAZEPAM (Verified Allergy, Unknown, 07/09/16) Subjective left hand pain Objective Last 24 Hour Vital Signs Date Time Temp Pulse Resp B/P Pulse Ox O2 Delivery O2 Flow Rate FiO2 07/16/16 12:23 98.2 80 20 121/58 98 Room Air 07/16/16 08:36 84 136/74 07/16/16 08:00 98.7 84 20 135/54 98 Room Air 07/16/16 04:00 97.8 84 16 136/74 99 Room Air 07/16/16 00:00 97.7 76 16 142/79 100 Room Air 07/15/16 20:00 98.4 80 18 125/61 99 Room Air 07/15/16 16:01 97.3 92 18 117/59 100 Room Air Intake and Output 07/15/16 07/16/16 19:00 07:00 Intake Total 1080 ml 120 ml Balance 1080 ml 120 ml Intake Oral 1080 ml 120 ml # Voids 3 1 # Bowel Movements 1 Height (Feet): 5 Height (Inches): 3.00 Weight (Pounds): 130 General Appearance: confused Дмитрий Dominguez MD Jul 16, 2016 13:06
[2016-07-16] MEDS ORDERED: D5 1/2NS 1000ml IV ONE (13:14)
--- NOTE | 2016-07-17 16:48 | Discharge Summary ---
Discharge Summary Hospital Course Date of Admission Jul 09, 2016 at 15:02 Date of Discharge Jul 16, 2016 at 13:15 Admitting Diagnosis HAND INJURY,AMS HPI Rodrigo Whiteside is a 80 year old female who was admitted on Jul 09, 2016 at 15 :02 for Hand Injury, Altered Mental Status Hospital Course [id number] Discharge Discharge Disposition Patient was discharged to SNF/Subacute Facility(03) Discharge Diagnoses: Dominga Rowell NP Jul 17, 2016 16:48
--- NOTE | 2016-07-31 18:12 | Discharge Summary ---
Discharge Summary Hospital Course Date of Admission Jul 09, 2016 at 15:02 Date of Discharge Jul 16, 2016 at 13:15 Admitting Diagnosis HAND INJURY,AMS HPI Rodrigo Whiteside is a 80 year old female who was admitted on Jul 09, 2016 at 15 :02 for Hand Injury, Altered Mental Status Hospital Course [id number] Discharge Discharge Disposition Patient was discharged to SNF/Subacute Facility(03) Discharge Diagnoses: Dominga Rowell NP Jul 31, 2016 18:12
--- NOTE | 2016-08-01 01:18 | Discharge Summary 2 SIG ---
DATE OF ADMISSION: 07/09/2016 DATE OF DISCHARGE: 07/16/2016 CONSULTANTS: 1. Patricia Fitzgerald M.D. 2. Stephanie Bowden M.D. 3. Santo Pal M.D. 4. Malachi Hernandez M.D. BRIEF HOSPITAL COURSE: The patient is a 80-year-old female, who came in confused and agitated. She was admitted for possible left hand cellulitis noted couple of days ago uncertain as to how this arose. On evaluation at ED, WBC was normal with elevated lactate. Dr. Pal was consulted. Repeat imaging were obtained and showed left fifth middle phalanx fracture. Given the underlying issues, was recommended valerie taping the fourth and fifth fingers together as it will take anywhere from 4 to 6 weeks to heal. She was followed by Dr. Bowden and assessed no need for antibiotics. Swelling was secondary to contusion of the left hand. She was seen by psychiatry. The patient has bipolar disorder by history with dementia and behavioral issues as she had been agitated and combative and hitting the staff. She was continued on Ativan. Remeron was increased to 50 mg q.h.s. She was eventually discharged back to detention. FINAL DIAGNOSES: 1. Contusion of left hand. 2. Acute left fifth middle phalanx fracture. 3. Dementia with behavioral issues. 4. Bipolar disorder by history. 5. Anemia. 6. Possible cellulitis of the hand. 7. Anxiety. Дмитрий Dominguez M.D. I have been assigned to dictate discharge summary on this account and I was not involved in the patient's management. Dominga Rowell N.P. DR: NOLBERTO JOB#: [id number] CC: ISAIAH
== END 2016-07-16 13:15 | DRG 563 ==
LOC: EDBD 09:45 → EMR 10:23 → 4W 15:02 → EDBEDREQ 15:09 → EMR 15:37 → EDBEDREQ 15:53 → 4W 07-11 11:01
DX: S62.613A Displaced fracture of proximal phalanx of left middle finger, initial encounter for closed fracture (principal); E11.9 Type 2 diabetes mellitus without complications; G30.9 Alzheimer's disease, unspecified; F03.91 Unspecified dementia, unspecified severity, with behavioral disturbance; I10 Essential (primary) hypertension; D64.9 Anemia, unspecified; E78.5 Hyperlipidemia, unspecified; K21.9 Gastro-esophageal reflux disease without esophagitis; I25.10 Atherosclerotic heart disease of native coronary artery without angina pectoris; F41.9 Anxiety disorder, unspecified; F31.9 Bipolar disorder, unspecified; Z86.718 Personal history of other venous thrombosis and embolism; X58.XXXA Exposure to other specified factors, initial encounter; Y92.9 Unspecified place or not applicable; Z88.8 Allergy status to other drugs, medicaments and biological substances
CPT/HCPCS: 36415; 71010; 80053; 81003; 82550; 83605; 84484; 85025; 85610; 86703; 86710; 86803; 87081; 87340; 93005

== ENCOUNTER 2018-07-18 12:48 | Inpatient (IN) | payer MEDICARE, OTHER ==
[~2018-07-18] VITALS: Ht 154.9 cm; Wt 49.0 kg
[~2018-07-18 12:48] MED LIST changes: +ATORVASTATIN CA20 MG ORAL; +LAMICTAL25 MG ORAL; +MELATONIN3 M1 ORAL; +MULTIVITAMINS1 EAC8 ORAL; +NUEDEXTA 20-101 EAC1 PO; +ZOFRAN8 MG ORAL
--- NOTE | 2018-07-18 12:59 | Emergency Room Report ---
History of Present Illness General Chief Complaint: Skin Rash/Abscess Source: Medical Record, EMS Present Illness HPI Patient presents with reports of infection in the left axilla Patient herself appears to have fairly significant underlying dementia likely Parkinson's disease Is able to have appropriate conversation with significant stuttering, and underlying confusion History of present illness is limited No obvious reported fevers patient has been eating less than usual Appears uncomfortable and the area ongoing for the past several days Allergies: Coded Allergies: LORAZEPAM (Verified Allergy, Unknown, 07/18/18) Patient History Past Medical History: see triage record Pertinent Family History: none Reviewed Nursing Documentation: PMH: Agreed; PSxH: Agreed Nursing Documentation-PMH Hx Cardiac Problems: Yes - DVT, Edema, Anemia, hyperlipidemia Hx Hypertension: Yes - Cataract Hx Diabetes: Yes Hx Cancer: No Hx Gastrointestinal Problems: Yes - GERD Hx Neurological Problems: Yes - muscle weakness Hx Dementia: Yes Hx Alzheimer's Disease: Yes Hx Dizziness: Yes Hx Weakness: Yes Review of Systems All Other Systems: negative except mentioned in HPI Physical Exam Vital Signs Date Time Temp Pulse Resp B/P (MAP) Pulse Ox O2 Delivery O2 Flow Rate FiO2 07/18/18 12:49 97.5 82 16 121/78 98 Room Air Sp02 EP Interpretation: reviewed, normal General Appearance: no apparent distress Head: normocephalic, atraumatic Eyes: bilateral eye PERRL, bilateral eye EOMI ENT: dry mucus membranes Neck: supple, thyroid normal Respiratory: no retraction, no accessory muscle use Cardiovascular #1: regular rate, rhythm, no edema Gastrointestinal: non tender, soft Musculoskeletal: normal inspection Neurologic: alert, responsive Psychiatric: anxious Skin: other - Palpable fluctuance left axilla there is an opening and with minimal pressure there is expression of pus, also surrounding cellulitis, Lymphatic: no adenopathy Medical Decision Making Diagnostic Impression: Primary Impression: Abscess Additional Impressions: Cellulitis Sepsis ER Course Given the exam findings and history extensive blood work is initiated patient is complex requiring broad-spectrum antibiotics With regards to intervention in the ER at this time we were able to express significant amount of pus Through the opening already however patient will have further surgical consultation Further IV hydration provided and patient requiring inpatient care Labs Test 07/18/18 13:10 White Blood Count 7.5 K/UL (4.8-10.8) Red Blood Count 4.20 M/UL (4.20-5.40) Hemoglobin 12.1 G/DL (12.0-16.0) Hematocrit 35.6 % (37.0-47.0) Mean Corpuscular Volume 85 FL (80-99) Mean Corpuscular Hemoglobin 28.8 PG (27.0-31.0) Mean Corpuscular Hemoglobin Concent 33.9 G/DL (32.0-36.0) Red Cell Distribution Width 11.7 % (11.6-14.8) Platelet Count 369 K/UL (150-450) Mean Platelet Volume 5.4 FL (6.5-10.1) Neutrophils (%) (Auto) 68.6 % (45.0-75.0) Lymphocytes (%) (Auto) 21.7 % (20.0-45.0) Monocytes (%) (Auto) 5.2 % (1.0-10.0) Eosinophils (%) (Auto) 3.2 % (0.0-3.0) Basophils (%) (Auto) 1.3 % (0.0-2.0) Sodium Level 140 MMOL/L (136-145) Potassium Level 5.1 MMOL/L (3.5-5.1) Chloride Level 106 MMOL/L (98-107) Carbon Dioxide Level 26 MMOL/L (21-32) Anion Gap 8 mmol/L (5-15) Blood Urea Nitrogen 18 mg/dL (7-18) Creatinine 0.7 MG/DL (0.55-1.30) Estimat Glomerular Filtration Rate mL/min (>60) Glucose Level 86 MG/DL (74-106) Calcium Level 9.6 MG/DL (8.5-10.1) Total Bilirubin 0.3 MG/DL (0.2-1.0) Aspartate Amino Transf (AST/SGOT) 27 U/L (15-37) Alanine Aminotransferase (ALT/SGPT) 16 U/L (12-78) Alkaline Phosphatase 108 U/L (46-116) Total Creatine Kinase 94 U/L (26-308) Creatine Kinase MB 2.1 NG/ML (0.0-3.6) Creatine Kinase MB Relative Index 2.2 Total Protein 8.4 G/DL (6.4-8.2) Albumin 3.3 G/DL (3.4-5.0) Globulin 5.1 g/dL Albumin/Globulin Ratio 0.6 (1.0-2.7) Rhythm Strip Diag. Results EP Interpretation: yes Rate: 80 Rhythm: NSR, no PVC's, no ectopy Last Vital Signs Date Time Temp Pulse Resp B/P (MAP) Pulse Ox O2 Delivery O2 Flow Rate FiO2 07/18/18 12:49 97.5 82 16 121/78 98 Room Air Status: improved Disposition: ADMITTED INPATIENT Condition: Serious Дмитрий Lafleur DO Jul 18, 2018 12:59
[2018-07-18] MEDS ORDERED: cefTRIAXone 1 GM in NS 55 ML IVPB ONE (13:00)
--- NOTE | 2018-07-18 13:23 | NUR ---
ED Nurse Note: Pt BIBA from [facility] due to left axillary abcess noted by staff today. Redness noted. Pt presented to the ER agitated. Farsi speaking. Pt is refused care and is trying to grab and kick ED staff.
--- NOTE | 2018-07-18 13:25 | NUR ---
ED Nurse Note: Pt provided warm blanket.
[2018-07-18] MEDS ORDERED: Haloperidol 5mg/ml Inj IM ONE (13:30)
[2018-07-18 13:34] LABS: ANION GAP 8 mmol/L (5-15); BLOOD UREA NITROGEN 18 mg/dL (7-18); CALCIUM 9.6 MG/DL (8.5-10.1); CARBON DIOXIDE 26 MMOL/L (21-32); CHLORIDE 106 MMOL/L (98-107); CREATININE 0.7 MG/DL (0.55-1.30); POTASSIUM 5.1 MMOL/L (3.5-5.1); SODIUM 140 MMOL/L (136-145)
[2018-07-18 13:41] LABS: BASOPHILS % (AUTO) 1.3 % (0.0-2.0); EOSINOPHILS % (AUTO) 3.2 % (0.0-3.0); HEMATOCRIT 35.6 % (37.0-47.0); HEMOGLOBIN 12.1 G/DL (12.0-16.0); LYMPHOCYTES % (AUTO) 21.7 % (20.0-45.0); MEAN CORPUSCULAR VOLUME 85 FL (80-99); MONOCYTES % (AUTO) 5.2 % (1.0-10.0); NEUTROPHILS % (AUTO) 68.6 % (45.0-75.0); PLATELET COUNT 369 K/UL (150-450); RED CELL DISTRIBUTION WIDTH 11.7 % (11.6-14.8); WHITE BLOOD COUNT 7.5 K/UL (4.8-10.8)
[2018-07-18 13:49] LABS: ALANINE AMINOTRANSFERASE 16 U/L (12-78); ALBUMIN 3.3 G/DL (3.4-5.0); ALBUMIN/GLOBULIN RATIO 0.6 (1.0-2.7); ALKALINE PHOSPHATASE 108 U/L (46-116); ASPARTATE AMINO TRANSFERASE 27 U/L (15-37); BILIRUBIN,TOTAL 0.3 MG/DL (0.2-1.0); CKMB 2.1 NG/ML (0.0-3.6); CREATINE KINASE 94 U/L (26-308)
--- NOTE | 2018-07-18 14:27 | NUR ---
ED Nurse Note: Pt refused MRSA and VRE/CRE swabs.
--- NOTE | 2018-07-18 14:29 | NUR ---
ED Nurse Note: Pt refused to take pictures of abcess.
--- NOTE | 2018-07-18 14:39 | NUR ---
ED Nurse Note: Gave telephone report to JORDAN Ya.
[2018-07-18] MEDS ORDERED: AMLODIPINE BESYL5 MG ORAL (14:47)
[2018-07-18] MEDS ORDERED: CALCIUM + D3 E1 EACH PO (14:47)
[2018-07-18] MEDS ORDERED: FERROUS SULFAT325 MG ORAL (14:47)
--- NOTE | 2018-07-18 15:15 | NUR ---
ED Nurse Note: Pt transferred up to med-surg unit. No acute distress noted.
[2018-07-18 15:22] VITALS: BP 157/66
--- NOTE | 2018-07-18 15:30 | NUR ---
NURSE NOTES: received patient agitated, disoriented. noisy and confused. patient was given haldol IM prior admission @ ED. skin assessment done. wound/drainage on left axilla. initiate wound treatment. cleanse with NS, pat dry applied hydrogel and covered with biatain patch. IV heplock is patent and intact and covered with kerlex jd to prevent from pulling it out. . only personal belonging is shirt and noted. No acute resp distress noted. siderails are upx3, bed is i the lowest position. bed alarm is activated. all extremities are mobile. Admission profile done. placed call to PMD Alberto, awaiting for response. will cont to monitor.
[2018-07-18] MEDS: Nuedexta Capsule 20/10mg ORAL SCH (17:28)
--- NOTE | 2018-07-18 19:19 | NUR ---
HAND-OFF: Report given to Tung.
--- NOTE | 2018-07-18 19:20 | NUR ---
NURSE NOTES: Received report from JORDAN Ya. Patient is awake, disoriented, confused and combative. Sitter at bedside for safety. All side rails up. Fall precaution observed. Vitals stable. No respiratory distress. No Sob. All needs attended and met. Will continue to monitor.
[2018-07-18 20:00] VITALS: BP 100/75
[2018-07-18] MEDS: Docusate 100mg cap ORAL SCH (22:52)
--- NOTE | 2018-07-18 23:00 | History and Physical Report ---
DATE OF ADMISSION: 07/18/2018 HISTORY OF PRESENT ILLNESS: The patient admitted for left axilla abscess/cellulitis. The patient is very agitated and confused, trying to get out of bed. The patient is a poor historian with advanced dementia. Unable to get a reliable history from the patient due to advanced dementia. Does have chronic pain syndrome as well. Thus is being admitted for left axillary abscess possible I and D. The patient was also given IV antibiotics. According to ER doctor, also in the ER they were able to express good amount of pus through the opening. However, the patient is going to still need possible further excision and large I and D to drain the pus. PAST MEDICAL HISTORY: Advanced dementia, hypertension, hyperlipidemia, constipation, mood disorder, tremors, possible Parkinson's. PAST SURGICAL HISTORY: History of PEG. ALLERGIES: Lorazepam. MEDICATIONS: Atenolol, aspirin, Lipitor, ferrous sulfate, Colace, mirtazapine, primidone. FAMILY HISTORY: Unable to obtain. SOCIAL HISTORY: Unable to obtain. REVIEW OF SYSTEMS: Unable to obtain. However, the patient does have history of chronic pain syndrome. Denies shortness of breath. Denies nausea, vomiting, diarrhea, fever, chills, abdominal pain. The patient is a poor historian. PHYSICAL EXAMINATION: VITAL SIGNS: Temperature 97.7, pulse 88, blood pressure 130/75. HEENT: PERRLA. NECK: Supple. No lymphadenopathy. CHEST: Clear to auscultation. CARDIOVASCULAR: Regular rate and rhythm. ABDOMEN: Soft, nondistended. Positive bowel sounds. No organomegaly. EXTREMITIES: Does have pus coming out of the left axilla. 1+ edema. NEUROLOGIC: Has generalized weakness. Oriented to name. Confused. Cannot get reliable history from the patient. LABORATORY DATA: WBC of 7.5, hemoglobin 12.1, platelets of 369. Sodium 140, potassium 5.1, BUN of 18, creatinine 0.7, and glucose of 86. ASSESSMENT AND PLAN: Left axillary abscess/cellulitis also agitated also looks clinically dehydrated. I have asked Dr. Pappas, Dr. Zak Cisse, Dr. Garber to see the patient for the hydration as well as antibiotics and for possible I and D of the left axillary abscess. Ali Dilip Dominguez DR: CARIN JOB#: [id number] CC:
[2018-07-19 00:08] VITALS: BP 118/73
[2018-07-19 03:49] VITALS: BP 133/69
--- NOTE | 2018-07-19 07:41 | NUR ---
HAND-OFF: Report given to JORDAN Fragoso.
[2018-07-19 08:00] VITALS: BP 165/66
--- NOTE | 2018-07-19 08:06 | NUR ---
NURSE NOTES: Patient is asleep. No s/s of distress at the moment. Patient is near nurse's station. Bed is locked and in lowest position. Will continue to monitor.
[2018-07-19] MEDS: Milk of Magnesia 30ml Ud ORAL SCH (08:37)
[2018-07-19] MEDS: Atenolol 25mg tab ORAL SCH (08:37)
[2018-07-19] MEDS: Aspirin EC 81mg tab ORAL SCH (08:37)
[2018-07-19] MEDS: Nuedexta Capsule 20/10mg ORAL SCH ×2 (08:37→17:33)
[2018-07-19] MEDS: Multivitamin w/Minerals tab ORAL SCH (08:37)
[2018-07-19] MEDS: Docusate 100mg cap ORAL SCH ×2 (08:37→21:57)
--- NOTE | 2018-07-19 11:38 | Consultation ---
History of Present Illness General Chief Complaint: Skin Rash/Abscess Present Illness HPI 82 female with hx of mmp, dementia and depression. the pt was agitated and confused, trying to get out of bed. The patient is a poor historian with advanced dementia. Unable to get a reliable history from the patient due to advanced dementia. the pt is unable to understand, process or appreciate the info. the pt speaks nonsensical and is disorganized. Allergies: Coded Allergies: LORAZEPAM (Verified Allergy, Unknown, 07/18/18) Medication History Scheduled Amlodipine Besylate* (Amlodipine Besylate*), 5 MG ORAL DAILY, (Reported) Aspirin* (Aspir 81*), 81 MG ORAL DAILY, (Reported) Atenolol (Tenormin), 25 MG ORAL DAILY, (Reported) Atorvastatin Calcium* (Atorvastatin Calcium*), 10 MG ORAL BEDTIME, (Reported) Dextromethorphan Hbr/Quinidine (Nuedexta 20-10 Mg Capsule), 1 EACH PO BID, ( Reported) Docusate Sodium* (Colace*), 100 MG ORAL Q12HR, (Reported) Ferrous Sulfate* (Ferrous Sulfate*), 325 MG ORAL DAILY, (Reported) Lamotrigine* (Lamictal*), 25 MG ORAL DAILY, (Reported) Magnesium Hydroxide (Milk of Magnesia), 30 ML ORAL DAILY, (Reported) Mirtazapine* (Remeron*), Unknown Dose ORAL BEDTIME, (Reported) Multivitamin With Minerals (Multivitamins With Minerals*), 1 TAB ORAL DAILY, ( Reported) Primidone* (Mysoline*), 50 MG PO DAILY, (Reported) Primidone* (Mysoline*), 3 TAB PO HS, (Reported) Scheduled PRN Acetaminophen (Tylenol), 650 MG ORAL Q6H PRN for Mild Pain/Temp > 100.5, ( Reported) Melatonin (Melatonin), 3 MG ORAL BEDTIME PRN for Insomnia, (Reported) Ondansetron Hcl* (Zofran*), 4 MG ORAL Q6H PRN for Nausea & Vomiting, (Reported) Miscellaneous Medications Calcium Carb & Cit/Vitamin D3 (Calcium + D3 Er Tablet), 1 EACH PO, (Reported) Patient History Limited by: medical condition History Provided By: Medical Record, PMD Healthcare decision maker Resuscitation status Advanced Directive on File Past Medical/Surgical History Past Medical/Surgical History: (1) Abscess (2) Sepsis (3) Acute cholecystitis (4) Fever (5) Anemia (6) Anxiety (7) Cellulitis (8) Dementia (9) UTI (urinary tract infection) (10) Deep venous thrombosis (11) DVT (deep venous thrombosis) (12) Chest pain (13) Chest pain (14) Axillary abscess Review of Systems Psychiatric: Reports: prior hx, anxiety, depressed feelings, emotional problems , hallucinations Physical Exam General Appearance: alert, confused, severe distress, agitated Last 24 Hour Vital Signs Date Time Temp Pulse Resp B/P (MAP) Pulse Ox O2 Delivery O2 Flow Rate FiO2 07/19/18 08:37 66 165/66 07/19/18 08:37 66 165/66 07/19/18 08:00 Room Air 07/19/18 08:00 98.7 66 18 165/66 (99) 95 07/19/18 03:49 97.8 102 20 133/69 (90) 96 07/19/18 00:08 98.0 100 21 118/73 (88) 95 07/18/18 21:00 Room Air 07/18/18 20:00 97.8 105 20 100/75 (83) 96 07/18/18 15:38 Room Air 07/18/18 15:22 97.6 101 21 157/66 (96) 96 07/18/18 15:14 97.7 88 18 120/75 97 Room Air 07/18/18 12:49 97.5 82 16 121/78 98 Room Air Intake and Output 07/18/18 07/19/18 18:59 06:59 Intake Total 120 ml Balance 120 ml Intake Oral 120 ml # Voids 1 1 Laboratory Tests Test 07/18/18 13:10 White Blood Count 7.5 K/UL (4.8-10.8) Red Blood Count 4.20 M/UL (4.20-5.40) Hemoglobin 12.1 G/DL (12.0-16.0) Hematocrit 35.6 % (37.0-47.0) L Mean Corpuscular Volume 85 FL (80-99) Mean Corpuscular Hemoglobin 28.8 PG (27.0-31.0) Mean Corpuscular Hemoglobin Concent 33.9 G/DL (32.0-36.0) Red Cell Distribution Width 11.7 % (11.6-14.8) Platelet Count 369 K/UL (150-450) Mean Platelet Volume 5.4 FL (6.5-10.1) L Neutrophils (%) (Auto) 68.6 % (45.0-75.0) Lymphocytes (%) (Auto) 21.7 % (20.0-45.0) Monocytes (%) (Auto) 5.2 % (1.0-10.0) Eosinophils (%) (Auto) 3.2 % (0.0-3.0) H Basophils (%) (Auto) 1.3 % (0.0-2.0) Sodium Level 140 MMOL/L (136-145) Potassium Level 5.1 MMOL/L (3.5-5.1) Chloride Level 106 MMOL/L (98-107) Carbon Dioxide Level 26 MMOL/L (21-32) Anion Gap 8 mmol/L (5-15) Blood Urea Nitrogen 18 mg/dL (7-18) Creatinine 0.7 MG/DL (0.55-1.30) Estimat Glomerular Filtration Rate mL/min (>60) Glucose Level 86 MG/DL (74-106) Calcium Level 9.6 MG/DL (8.5-10.1) Total Bilirubin 0.3 MG/DL (0.2-1.0) Aspartate Amino Transf (AST/SGOT) 27 U/L (15-37) Alanine Aminotransferase (ALT/SGPT) 16 U/L (12-78) Alkaline Phosphatase 108 U/L (46-116) Total Creatine Kinase 94 U/L (26-308) Creatine Kinase MB 2.1 NG/ML (0.0-3.6) Creatine Kinase MB Relative Index 2.2 Total Protein 8.4 G/DL (6.4-8.2) H Albumin 3.3 G/DL (3.4-5.0) L Globulin 5.1 g/dL Albumin/Globulin Ratio 0.6 (1.0-2.7) L Height (Feet): 5 Height (Inches): 1.00 Weight (Pounds): 110 Medications Current Medications Medications (Trade) Dose Ordered Sig/Constantin Route PRN Reason Start Time Stop Time Status Last Admin Dose Admin Acetaminophen (Tylenol) 650 mg Q6H PRN ORAL Mild Pain/Temp > 100.5 07/18/18 16:00 08/17/18 15:59 Amlodipine Besylate (Norvasc) 5 mg DAILY ORAL 07/19/18 09:00 08/18/18 08:59 07/19/18 08:37 Aspirin (Ecotrin) 81 mg DAILY ORAL 07/19/18 09:00 08/18/18 08:59 07/19/18 08:37 Atenolol (Tenormin) 25 mg DAILY ORAL 07/19/18 09:00 08/18/18 08:59 07/19/18 08:37 Atorvastatin Calcium (Lipitor) 10 mg BEDTIME ORAL 07/18/18 21:00 08/17/18 20:59 07/18/18 22:53 Dextromethorphan/ Quinidine (Nuedexta Capsule) 1 cap BID ORAL 07/18/18 18:00 08/17/18 17:59 07/19/18 08:37 Docusate Sodium (Colace) 100 mg Q12HR ORAL 07/18/18 21:00 08/17/18 20:59 07/19/18 08:37 Ferrous Sulfate (Feosol) 325 mg DAILY ORAL 07/19/18 09:00 08/18/18 08:59 07/19/18 08:37 Lamotrigine (LaMICtal) 25 mg DAILY ORAL 07/19/18 09:00 08/18/18 08:59 07/19/18 08:37 Magnesium Hydroxide (Mom) 30 ml DAILY ORAL 07/19/18 09:00 08/18/18 08:59 07/19/18 08:37 Mirtazapine (Remeron) 15 mg BEDTIME ORAL 07/18/18 21:00 08/17/18 20:59 07/18/18 22:53 Multivitamins Therapeutic (Therapeutic Multivitamin) 1 ea DAILY ORAL 07/19/18 09:00 08/18/18 08:59 07/19/18 08:37 Primidone (Mysoline) 50 mg DAILY ORAL 07/19/18 09:00 08/18/18 08:59 07/19/18 08:37 Primidone (Mysoline) 50 mg QHS ORAL 07/18/18 21:00 08/17/18 20:59 07/18/18 22:53 Vancomycin HCl (Vanco rx to dose) 1 ea DAILY PRN MISC Per rx protocol 07/19/18 10:45 08/18/18 10:44 Vancomycin HCl 500 mg/Dextrose 110 ml @ 110 mls/hr Q24H IVPB 07/19/18 12:00 07/24/18 11:59 Assessment/Plan Problem List: (1) Dementia with behavioral disturbance ICD Codes: F03.91 - Unspecified dementia with behavioral disturbance SNOMED: 0839437693870 (2) Acute metabolic encephalopathy ICD Codes: G93.41 - Metabolic encephalopathy SNOMED: 99401150, 547446216 Status: unchanged Assessment/Plan seroquel 12.5mg po tid seroquel 25mg po q6hr prn haldol im remeron 30mg po qhs restraints. dc the Malachi Luna MD Jul 19, 2018 11:38
--- NOTE | 2018-07-19 11:55 | NUR ---
NURSE NOTES: Pt is restless, constantly mumbling and removing gown. Given Seroquel 25 mg PO prn as order. Continue to monitor, VSS.
[2018-07-19 12:00] VITALS: BP 125/56
--- NOTE | 2018-07-19 12:29 | Consultation ---
History of Present Illness General Date patient seen: Jul 19, 2018 Chief Complaint: Skin Rash/Abscess Reason for Consultation: left axilla absces Present Illness HPI 82 year old female with multiple medical comorbidities and psych history presented with worsening left axilla abscess. Surgery called to evaluate. patient seen, chart reviewed, patient examined. unable to provide history. Allergies: Coded Allergies: LORAZEPAM (Verified Allergy, Unknown, 07/18/18) Medication History Scheduled Amlodipine Besylate* (Amlodipine Besylate*), 5 MG ORAL DAILY, (Reported) Aspirin* (Aspir 81*), 81 MG ORAL DAILY, (Reported) Atenolol (Tenormin), 25 MG ORAL DAILY, (Reported) Atorvastatin Calcium* (Atorvastatin Calcium*), 10 MG ORAL BEDTIME, (Reported) Dextromethorphan Hbr/Quinidine (Nuedexta 20-10 Mg Capsule), 1 EACH PO BID, ( Reported) Docusate Sodium* (Colace*), 100 MG ORAL Q12HR, (Reported) Ferrous Sulfate* (Ferrous Sulfate*), 325 MG ORAL DAILY, (Reported) Lamotrigine* (Lamictal*), 25 MG ORAL DAILY, (Reported) Magnesium Hydroxide (Milk of Magnesia), 30 ML ORAL DAILY, (Reported) Mirtazapine* (Remeron*), Unknown Dose ORAL BEDTIME, (Reported) Multivitamin With Minerals (Multivitamins With Minerals*), 1 TAB ORAL DAILY, ( Reported) Primidone* (Mysoline*), 50 MG PO DAILY, (Reported) Primidone* (Mysoline*), 3 TAB PO HS, (Reported) Scheduled PRN Acetaminophen (Tylenol), 650 MG ORAL Q6H PRN for Mild Pain/Temp > 100.5, ( Reported) Melatonin (Melatonin), 3 MG ORAL BEDTIME PRN for Insomnia, (Reported) Ondansetron Hcl* (Zofran*), 4 MG ORAL Q6H PRN for Nausea & Vomiting, (Reported) Miscellaneous Medications Calcium Carb & Cit/Vitamin D3 (Calcium + D3 Er Tablet), 1 EACH PO, (Reported) Patient History Limited by: medical condition History Provided By: Medical Record, PMD Healthcare decision maker Resuscitation status Advanced Directive on File Past Medical/Surgical History Past Medical/Surgical History: (1) Acute cholecystitis (2) Chest pain (3) UTI (urinary tract infection) (4) Dementia (5) Anemia (6) Fever (7) Deep venous thrombosis (8) DVT (deep venous thrombosis) (9) Chest pain (10) Abscess (11) Sepsis (12) Axillary abscess (13) Anxiety (14) Cellulitis Review of Systems ROS Narrative cannot provide history Physical Exam General Appearance: no apparent distress Lines, tubes and drains: peripheral HEENT: mucous membranes moist Neck: normal inspection Respiratory/Chest: normal breath sounds, no respiratory distress, no accessory muscle use Cardiovascular/Chest: regular rhythm Abdomen: soft, no organomegaly, no mass Extremities: other - 3cm raised indurated left axilla abscess with spontaneous drainage noted. Skin Exam: warm/dry Neurologic: alert Last 24 Hour Vital Signs Date Time Temp Pulse Resp B/P (MAP) Pulse Ox O2 Delivery O2 Flow Rate FiO2 07/19/18 12:00 98.2 71 18 125/56 (79) 95 07/19/18 08:37 66 165/66 07/19/18 08:37 66 165/66 07/19/18 08:00 Room Air 07/19/18 08:00 98.7 66 18 165/66 (99) 95 07/19/18 03:49 97.8 102 20 133/69 (90) 96 07/19/18 00:08 98.0 100 21 118/73 (88) 95 07/18/18 21:00 Room Air 07/18/18 20:00 97.8 105 20 100/75 (83) 96 07/18/18 15:38 Room Air 07/18/18 15:22 97.6 101 21 157/66 (96) 96 07/18/18 15:14 97.7 88 18 120/75 97 Room Air 07/18/18 12:49 97.5 82 16 121/78 98 Room Air Intake and Output 07/18/18 07/19/18 18:59 06:59 Intake Total 120 ml Balance 120 ml Intake Oral 120 ml # Voids 1 1 Laboratory Tests Test 07/18/18 13:10 White Blood Count 7.5 K/UL (4.8-10.8) Red Blood Count 4.20 M/UL (4.20-5.40) Hemoglobin 12.1 G/DL (12.0-16.0) Hematocrit 35.6 % (37.0-47.0) L Mean Corpuscular Volume 85 FL (80-99) Mean Corpuscular Hemoglobin 28.8 PG (27.0-31.0) Mean Corpuscular Hemoglobin Concent 33.9 G/DL (32.0-36.0) Red Cell Distribution Width 11.7 % (11.6-14.8) Platelet Count 369 K/UL (150-450) Mean Platelet Volume 5.4 FL (6.5-10.1) L Neutrophils (%) (Auto) 68.6 % (45.0-75.0) Lymphocytes (%) (Auto) 21.7 % (20.0-45.0) Monocytes (%) (Auto) 5.2 % (1.0-10.0) Eosinophils (%) (Auto) 3.2 % (0.0-3.0) H Basophils (%) (Auto) 1.3 % (0.0-2.0) Sodium Level 140 MMOL/L (136-145) Potassium Level 5.1 MMOL/L (3.5-5.1) Chloride Level 106 MMOL/L (98-107) Carbon Dioxide Level 26 MMOL/L (21-32) Anion Gap 8 mmol/L (5-15) Blood Urea Nitrogen 18 mg/dL (7-18) Creatinine 0.7 MG/DL (0.55-1.30) Estimat Glomerular Filtration Rate mL/min (>60) Glucose Level 86 MG/DL (74-106) Calcium Level 9.6 MG/DL (8.5-10.1) Total Bilirubin 0.3 MG/DL (0.2-1.0) Aspartate Amino Transf (AST/SGOT) 27 U/L (15-37) Alanine Aminotransferase (ALT/SGPT) 16 U/L (12-78) Alkaline Phosphatase 108 U/L (46-116) Total Creatine Kinase 94 U/L (26-308) Creatine Kinase MB 2.1 NG/ML (0.0-3.6) Creatine Kinase MB Relative Index 2.2 Total Protein 8.4 G/DL (6.4-8.2) H Albumin 3.3 G/DL (3.4-5.0) L Globulin 5.1 g/dL Albumin/Globulin Ratio 0.6 (1.0-2.7) L Height (Feet): 5 Height (Inches): 1.00 Weight (Pounds): 110 Medications Current Medications Medications (Trade) Dose Ordered Sig/Constantin Route PRN Reason Start Time Stop Time Status Last Admin Dose Admin Acetaminophen (Tylenol) 650 mg Q6H PRN ORAL Mild Pain/Temp > 100.5 07/18/18 16:00 08/17/18 15:59 Amlodipine Besylate (Norvasc) 5 mg DAILY ORAL 07/19/18 09:00 08/18/18 08:59 07/19/18 08:37 Aspirin (Ecotrin) 81 mg DAILY ORAL 07/19/18 09:00 08/18/18 08:59 07/19/18 08:37 Atenolol (Tenormin) 25 mg DAILY ORAL 07/19/18 09:00 08/18/18 08:59 07/19/18 08:37 Atorvastatin Calcium (Lipitor) 10 mg BEDTIME ORAL 07/18/18 21:00 08/17/18 20:59 07/18/18 22:53 Dextromethorphan/ Quinidine (Nuedexta Capsule) 1 cap BID ORAL 07/18/18 18:00 08/17/18 17:59 07/19/18 08:37 Docusate Sodium (Colace) 100 mg Q12HR ORAL 07/18/18 21:00 08/17/18 20:59 07/19/18 08:37 Ferrous Sulfate (Feosol) 325 mg DAILY ORAL 07/19/18 09:00 08/18/18 08:59 07/19/18 08:37 Lamotrigine (LaMICtal) 25 mg DAILY ORAL 07/19/18 09:00 08/18/18 08:59 07/19/18 08:37 Magnesium Hydroxide (Mom) 30 ml DAILY ORAL 07/19/18 09:00 08/18/18 08:59 07/19/18 08:37 Mirtazapine (Remeron) 30 mg BEDTIME ORAL 07/19/18 21:00 08/18/18 20:59 Multivitamins Therapeutic (Therapeutic Multivitamin) 1 ea DAILY ORAL 07/19/18 09:00 08/18/18 08:59 07/19/18 08:37 Primidone (Mysoline) 50 mg DAILY ORAL 07/19/18 09:00 08/18/18 08:59 07/19/18 08:37 Primidone (Mysoline) 50 mg QHS ORAL 07/18/18 21:00 08/17/18 20:59 07/18/18 22:53 Quetiapine Fumarate (SEROquel) 12.5 mg TID ORAL 07/19/18 13:00 08/18/18 12:59 Quetiapine Fumarate (SEROquel) 25 mg Q6H PRN ORAL For Anxiety 07/19/18 11:45 08/18/18 11:44 07/19/18 11:54 Vancomycin HCl (Vanco rx to dose) 1 ea DAILY PRN MISC Per rx protocol 07/19/18 10:45 08/18/18 10:44 Vancomycin HCl 500 mg/Dextrose 110 ml @ 110 mls/hr Q24H IVPB 07/19/18 12:00 07/24/18 11:59 Assessment/Plan Problem List: (1) Axillary abscess Assessment & Plan: 82 year old female with left axilla abscess. afebrile, HD stable, labs noted. 3-4cm indurated left axilla abscess with spontaneous drainage noted. tender on exam -will monitor for 24-48 hrs. if worsening will need to go to OR for drainage. if improved (given spontaneous drainage) can cont with wound care -wash left axilla and apply gauze over wound daily and prn saturation -IV abx as per ID -appreciate psych input -trend labs -will follow with recs thank you ICD Codes: L02.419 - Cutaneous abscess of limb, unspecified SNOMED: [id number] Finn Ppapas Jul 19, 2018 12:29
[2018-07-19] MEDS ORDERED: Haloperidol 5mg/ml Inj IM PRN (12:30)
[2018-07-19] MEDS: Vancomycin 500mg/D5W 110ml IVPB SCH ×2 (12:59)
--- NOTE | 2018-07-19 13:29 | NUR ---
NURSE NOTES: Patient confused and constantly trying to get out of bed no assigned sitter at bedside charge nurse and nurse taking turn to watch the patient patient is not left with out supervision remained safe. Dr. Hernandez saw the patient medication order received and given. patient able to calm down a little not trying to get out of bed. RN able to start ordered IV vancomycin. patient currently easily distracted with TV and nurses talking to patient restrain is not initiated due to decreased agitation after medication. Patient also constantly rubbing her leg and holding her head Tylenol given helps to reduce agitation. Order noted for DC sitter by Dr. Hernandez, and doctor Alberto also orderd not to DC the sitter till he see the patient traffic control supervisor and Dr. Hernandez notified.
--- NOTE | 2018-07-19 13:33 | NUR ---
NURSE NOTES: Per board machine set up operator. Dr. Hernandez place restraint order if patient acts out and is observed pulling devices. Patient is passive at the moment. No need for restraints at the moment.
[2018-07-19 16:00] VITALS: BP 113/46
--- NOTE | 2018-07-19 18:00 | Consultation ---
DATE OF CONSULTATION: 07/19/2018 INFECTIOUS DISEASE CONSULTATION CONSULTING PHYSICIAN: Zak Cisse M.D. PRIMARY ATTENDING PHYSICIAN: Дмитрий Dominguez M.D. REASON FOR CONSULT: Left axillary abscess. HISTORY OF PRESENT ILLNESS: This is an 82-year-old female admitted yesterday from a nursing facility because of swelling and drainage from the left axillary area with impression of axillary abscess. The patient has advanced dementia and is not a source of history. PAST MEDICAL HISTORY: Significant for dementia, diabetes mellitus, cataract, hypertension, and gastroesophageal reflux disease. MEDICATIONS: Getting Remeron, Seroquel, vancomycin, amlodipine, aspirin, atenolol, ferrous sulfate, lamotrigine, milk of magnesium, multivitamin, primidone, atorvastatin, Colace, dextromethorphan, quinidine capsule, and Tylenol. She also got a dose of ceftriaxone in the ER. ALLERGIES: Allergic to lorazepam. SOCIAL HISTORY: Single. custodial resident. No other history obtainable. PHYSICAL EXAMINATION: VITAL SIGNS: Temperature 98.2, pulse 71, and blood pressure 125/56. GENERAL APPEARANCE: No acute distress. Seems to be thin. HEAD AND NECK: [place] conjunctiva. HEART: Normal rate. LUNGS: Clear. ABDOMEN: Soft. Non tender. Bowel sounds present. EXTREMITY: She has no edema. SKIN: Has induration, erythema, and discharge from the left axillary area. IMPRESSION: Left axillary abscess. The patient has advanced dementia with psychosis, diabetes mellitus, hypertension, and gastroesophageal reflux disease. PLAN: 1. We will continue with IV vancomycin. 2. Surgical evaluation is pending. 3. We will ask for wound culture. 4. We will follow up blood culture. At the end of my exam, I thank Dr. Dominguez for involving me in the care of this patient. Zak Cisse M.D. DR: BAILEY JOB#: [id number] CC:
--- NOTE | 2018-07-19 19:22 | NUR ---
NURSE NOTES:Patient received from HA AsencioPatient in bed with sitter at bedside RH G#24 H/L patent and intact. patient denies pain at this time . no s/s of distress noted . call light within reach . bed in low position at all times . will continue to monitor .
--- NOTE | 2018-07-19 19:22 | NUR ---
HAND-OFF: Report given to VAIBHAV Bazan.
[2018-07-19 20:00] VITALS: BP 101/58
[2018-07-19] MEDS ORDERED: Tubing IV Secondary IV ONE (20:17)
[2018-07-19] MEDS ORDERED: NS 275ml ONE (20:17)
--- NOTE | 2018-07-19 20:40 | NUR ---
CASE MANAGEMENT: REVIEW 82/F KATRINA FROM [facility] CC: AXILLA ABSCESS SI: CELLULITIS T 97.6 HR 105 RR 21 BP 157/66 SAT 96% ROOM AIR ALBUMIN 3.3 IS: NS IVF BOLUS X1 CEFTRIAXONE IV X1 HALDOL IM X1 PATIENT ADMITTED TO MED/SURG UNIT 07/19/2018 DCP: PATIENT IS FROM [facility] PLAN: IF WORSENING WILL NEED TO GO TO OR FOR DRAINAGE
--- NOTE | 2018-07-19 21:00 | General Progress Note ---
Assessment/Plan Problem List: (1) Dementia ICD Codes: F03.90 - Unspecified dementia without behavioral disturbance SNOMED: 14059961 (2) Cellulitis ICD Codes: L03.90 - Cellulitis, unspecified SNOMED: 862998925 (3) Anxiety ICD Codes: F41.9 - Anxiety disorder, unspecified SNOMED: 99350029 (4) Abscess ICD Codes: L02.91 - Cutaneous abscess, unspecified SNOMED: 089885576 (5) Axillary abscess ICD Codes: L02.419 - Cutaneous abscess of limb, unspecified SNOMED: 37891505 (6) Dementia with behavioral disturbance ICD Codes: F03.91 - Unspecified dementia with behavioral disturbance SNOMED: 7580389120561 Status: progressing Assessment/Plan afebrile axillary abscess.pus coming out I&D per surgeon iv abx per id agitated and psychosis trying to get out of bed ordered sitter Subjective ROS Limited/Unobtainable: Yes Allergies: Coded Allergies: LORAZEPAM (Verified Allergy, Unknown, 07/18/18) Subjective agitated and confused Objective Last 24 Hour Vital Signs Date Time Temp Pulse Resp B/P (MAP) Pulse Ox O2 Delivery O2 Flow Rate FiO2 07/19/18 19:13 98.1 07/19/18 16:00 98.1 80 18 113/46 (68) 95 07/19/18 12:00 98.2 71 18 125/56 (79) 95 07/19/18 08:37 66 165/66 07/19/18 08:37 66 165/66 07/19/18 08:00 Room Air 07/19/18 08:00 98.7 66 18 165/66 (99) 95 07/19/18 03:49 97.8 102 20 133/69 (90) 96 07/19/18 00:08 98.0 100 21 118/73 (88) 95 07/18/18 21:00 Room Air Intake and Output 07/18/18 07/19/18 19:00 07:00 Intake Total 120 ml Balance 120 ml Intake Oral 120 ml # Voids 1 1 Height (Feet): 5 Height (Inches): 1.00 Weight (Pounds): 110 General Appearance: confused Cardiovascular: normal rate Respiratory/Chest: lungs clear Abdomen: soft Дмитрий Dominguez MD Jul 19, 2018 20:59
[2018-07-20] VITALS: BP 98/63
[2018-07-20 04:00] VITALS: BP 108/59
--- NOTE | 2018-07-20 07:54 | NUR ---
HAND-OFF: Report given to [].
[2018-07-20 08:00] VITALS: BP 132/53
--- NOTE | 2018-07-20 08:30 | NUR ---
NURSE NOTES: Patient sitting in bed eating breakfast. No signs and symptoms of pain or distress at this time. IV dressing intact and dry. Bed lowest position. Sitter at bedside. Side rails up. Call light within reach. Will continue to monitor.
[2018-07-20] MEDS: Milk of Magnesia 30ml Ud ORAL SCH (09:34)
[2018-07-20] MEDS: Aspirin EC 81mg tab ORAL SCH (09:35)
[2018-07-20] MEDS: Nuedexta Capsule 20/10mg ORAL SCH ×2 (09:35→17:33)
[2018-07-20] MEDS: Multivitamin w/Minerals tab ORAL SCH (09:35)
[2018-07-20] MEDS: Atenolol 25mg tab ORAL SCH (09:36)
[2018-07-20] MEDS: Docusate 100mg cap ORAL SCH ×2 (09:36→21:03)
[2018-07-20 12:00] VITALS: BP 109/85
[2018-07-20] MEDS: Vancomycin 500mg/D5W 110ml IVPB SCH ×2 (12:23)
--- NOTE | 2018-07-20 12:32 | Infectious Diseases Prog Note ---
Assessment/Plan Assessment/Plan A Left axillary abscess. Advanced dementia with psychosis, diabetes mellitus, hypertension gastroesophageal reflux disease. PLAN: 1. We will continue with IV vancomycin. 2. will f/u cultures Subjective ROS Limited/Unobtainable: Yes Constitutional: Reports: no symptoms Allergies: Coded Allergies: LORAZEPAM (Verified Allergy, Unknown, 07/18/18) Objective Vital Signs Last 24 Hour Vital Signs Date Time Temp Pulse Resp B/P (MAP) Pulse Ox O2 Delivery O2 Flow Rate FiO2 07/20/18 09:36 74 132/53 07/20/18 09:36 74 132/53 07/20/18 09:00 Room Air 07/20/18 08:00 98.5 74 20 132/53 (79) 95 07/20/18 04:00 97.2 78 20 108/59 (75) 96 07/20/18 00:00 98.0 71 20 98/63 (75) 95 07/19/18 21:00 Room Air 07/19/18 20:00 98.1 85 20 101/58 (72) 97 85 07/19/18 19:13 98.1 07/19/18 16:00 98.1 80 18 113/46 (68) 95 Height (Feet): 5 Height (Inches): 1.00 Weight (Pounds): 110 General Appearance: no acute distress HEENT: mucous membranes moist Respiratory/Chest: lungs clear Cardiovascular: normal rate Abdomen: soft, non tender Extremities: no edema Skin: other - left axillary abscess Neurologic/Psychiatric: alert, disoriented Microbiology Date/Time Source Procedure Growth Status 07/18/18 13:15 Blood Blood Culture - Preliminary NO GROWTH AFTER 24 HOURS Resulted 07/18/18 13:00 Blood Blood Culture - Preliminary NO GROWTH AFTER 24 HOURS Resulted Current Medications Medications (Trade) Dose Ordered Sig/Constantin Route PRN Reason Start Time Stop Time Status Last Admin Dose Admin Acetaminophen (Tylenol) 650 mg Q6H PRN ORAL Mild Pain/Temp > 100.5 07/18/18 16:00 08/17/18 15:59 07/19/18 18:43 Amlodipine Besylate (Norvasc) 5 mg DAILY ORAL 07/19/18 09:00 08/18/18 08:59 07/20/18 09:36 Aspirin (Ecotrin) 81 mg DAILY ORAL 07/19/18 09:00 08/18/18 08:59 07/20/18 09:35 Atenolol (Tenormin) 25 mg DAILY ORAL 07/19/18 09:00 08/18/18 08:59 07/20/18 09:36 Atorvastatin Calcium (Lipitor) 10 mg BEDTIME ORAL 07/18/18 21:00 08/17/18 20:59 07/19/18 21:58 Dextromethorphan/ Quinidine (Nuedexta Capsule) 1 cap BID ORAL 07/18/18 18:00 08/17/18 17:59 07/20/18 09:35 Docusate Sodium (Colace) 100 mg Q12HR ORAL 07/18/18 21:00 08/17/18 20:59 07/20/18 09:36 Ferrous Sulfate (Feosol) 325 mg DAILY ORAL 07/19/18 09:00 08/18/18 08:59 07/20/18 09:36 Haloperidol Lactate (Haldol) 5 mg Q6H PRN IM Agitation 07/19/18 12:30 08/18/18 12:29 Lamotrigine (LaMICtal) 25 mg DAILY ORAL 07/19/18 09:00 08/18/18 08:59 07/20/18 09:36 Magnesium Hydroxide (Mom) 30 ml DAILY ORAL 07/19/18 09:00 08/18/18 08:59 07/20/18 09:34 Mirtazapine (Remeron) 30 mg BEDTIME ORAL 07/19/18 21:00 08/18/18 20:59 07/19/18 21:57 Multivitamins Therapeutic (Therapeutic Multivitamin) 1 ea DAILY ORAL 07/19/18 09:00 08/18/18 08:59 07/20/18 09:35 Primidone (Mysoline) 50 mg DAILY ORAL 07/19/18 09:00 08/18/18 08:59 07/20/18 09:35 Primidone (Mysoline) 50 mg QHS ORAL 07/18/18 21:00 08/17/18 20:59 07/19/18 21:57 Quetiapine Fumarate (SEROquel) 12.5 mg TID ORAL 07/19/18 13:00 08/18/18 12:59 07/20/18 12:23 Quetiapine Fumarate (SEROquel) 25 mg Q6H PRN ORAL For Anxiety 07/19/18 11:45 08/18/18 11:44 07/19/18 11:54 Vancomycin HCl (Vanco rx to dose) 1 ea DAILY PRN MISC Per rx protocol 07/19/18 10:45 08/18/18 10:44 Vancomycin HCl 500 mg/Dextrose 110 ml @ 110 mls/hr Q24H IVPB 07/19/18 12:00 07/24/18 11:59 07/20/18 12:23 Zak Cisse MD Jul 20, 2018 12:32
--- NOTE | 2018-07-20 12:38 | Surgery Progress Note ---
Surgery Progress Note Subjective Additional Comments No acute events resting comfortably when attempting to examine patient she becomes very agitated and combative. Delirium. Left axillary abscess improved with currently serous spontaneous drainage no longer purulent cellulitis improved Objective Last 24 Hour Vital Signs Date Time Temp Pulse Resp B/P (MAP) Pulse Ox O2 Delivery O2 Flow Rate FiO2 07/20/18 09:36 74 132/53 07/20/18 09:36 74 132/53 07/20/18 09:00 Room Air 07/20/18 08:00 98.5 74 20 132/53 (79) 95 07/20/18 04:00 97.2 78 20 108/59 (75) 96 07/20/18 00:00 98.0 71 20 98/63 (75) 95 07/19/18 21:00 Room Air 07/19/18 20:00 98.1 85 20 101/58 (72) 97 85 07/19/18 19:13 98.1 07/19/18 16:00 98.1 80 18 113/46 (68) 95 I&O Intake and Output 07/19/18 07/20/18 18:59 06:59 Intake Total 1500 ml 440 ml Balance 1500 ml 440 ml Intake Oral 1500 ml 440 ml # Voids 3 Dressing: saturated Wound: clean Drains: none Cardiovascular: RSR Respiratory: clear Abdomen: soft, flat, non-tender, non-distended Extremities: no cyanosis Plan Problems: (1) Axillary abscess Assessment & Plan: 82 year old female with left axilla abscess. afebrile, HD stable, labs noted. 3-4cm indurated left axilla abscess with spontaneous drainage noted. tender on exam -left axilla abscess improved; cellulitis improved. drainage serous now. does not need I&D fortunately. -wash left axilla and apply gauze over wound daily and prn saturation -IV abx as per ID -trend labs -will follow with recs thank you Finn Pappas Jul 20, 2018 12:38
--- NOTE | 2018-07-20 14:19 | General Progress Note ---
Assessment/Plan Problem List: (1) Dementia with behavioral disturbance ICD Codes: F03.91 - Unspecified dementia with behavioral disturbance SNOMED: 6871145876392 (2) Acute metabolic encephalopathy ICD Codes: G93.41 - Metabolic encephalopathy SNOMED: 99529700, 707220372 Status: unchanged Assessment/Plan Seroquel 12.5mg po tid Seroquel 25mg po q6hr prn Haldol im Remeron 30mg po qhs restraints. dc the sitter Subjective Neurologic/Psychiatric: Reports: anxiety, depressed, emotional problems Allergies: Coded Allergies: LORAZEPAM (Verified Allergy, Unknown, 07/18/18) Objective Last 24 Hour Vital Signs Date Time Temp Pulse Resp B/P (MAP) Pulse Ox O2 Delivery O2 Flow Rate FiO2 07/20/18 12:00 97.3 66 22 109/85 (93) 94 07/20/18 09:36 74 132/53 07/20/18 09:36 74 132/53 07/20/18 09:00 Room Air 07/20/18 08:00 98.5 74 20 132/53 (79) 95 07/20/18 04:00 97.2 78 20 108/59 (75) 96 07/20/18 00:00 98.0 71 20 98/63 (75) 95 07/19/18 21:00 Room Air 07/19/18 20:00 98.1 85 20 101/58 (72) 97 85 07/19/18 19:13 98.1 07/19/18 16:00 98.1 80 18 113/46 (68) 95 Intake and Output 07/19/18 07/20/18 18:59 06:59 Intake Total 1500 ml 440 ml Balance 1500 ml 440 ml Intake Oral 1500 ml 440 ml # Voids 3 Height (Feet): 5 Height (Inches): 1.00 Weight (Pounds): 110 General Appearance: WD/WN, no apparent distress, alert, confused, moderate distress Malachi Hernandez MD Jul 20, 2018 14:19
[2018-07-20 16:00] VITALS: BP 114/48
--- NOTE | 2018-07-20 19:30 | NUR ---
HAND-OFF: Report given to Hortensia ESPOSITO. Patient in stable condition.
--- NOTE | 2018-07-20 19:30 | NUR ---
NURSE NOTES:patient received lying in bed from Arron srivastava 1:1 at bedside.no s/s of distress noted at this time.LH g # 24 H/L patent and intact covered with kerlex jd to prevent from pulling out. left axilla wounds cleanse with NS. Pat dry and applied gauze over the wound as per MD Ordered Patient incontinent of urine keep cleaned an dry to prevent from skin breakdown.patient turned and repositioned for comfort .safety maintained call light within reach , bed in low position . bed alarm on . will continue to monitor Addendum: 07/21/18 at 0544 by CHRISSY MORA LVN Patient on SCDS in placed .
[2018-07-20 19:52] VITALS: BP 117/69
--- NOTE | 2018-07-20 22:01 | General Progress Note ---
Assessment/Plan Problem List: (1) Dementia ICD Codes: F03.90 - Unspecified dementia without behavioral disturbance SNOMED: 58829418 (2) Cellulitis ICD Codes: L03.90 - Cellulitis, unspecified SNOMED: 333243095 (3) Anxiety ICD Codes: F41.9 - Anxiety disorder, unspecified SNOMED: 21966239 (4) Abscess ICD Codes: L02.91 - Cutaneous abscess, unspecified SNOMED: 921527783 (5) Axillary abscess ICD Codes: L02.419 - Cutaneous abscess of limb, unspecified SNOMED: 89188480 (6) Dementia with behavioral disturbance ICD Codes: F03.91 - Unspecified dementia with behavioral disturbance SNOMED: 7920246972114 Status: progressing Assessment/Plan afebrile axillary abscess.pus coming out abx per id psychosis ordered sitter Subjective ROS Limited/Unobtainable: Yes Allergies: Coded Allergies: LORAZEPAM (Verified Allergy, Unknown, 07/18/18) Subjective agitated and confused Objective Last 24 Hour Vital Signs Date Time Temp Pulse Resp B/P (MAP) Pulse Ox O2 Delivery O2 Flow Rate FiO2 07/20/18 19:52 98.5 70 20 117/69 (85) 96 07/20/18 16:00 97.3 69 20 114/48 (70) 94 07/20/18 12:00 97.3 66 22 109/85 (93) 94 07/20/18 09:36 74 132/53 07/20/18 09:36 74 132/53 07/20/18 09:00 Room Air 07/20/18 08:00 98.5 74 20 132/53 (79) 95 07/20/18 04:00 97.2 78 20 108/59 (75) 96 07/20/18 00:00 98.0 71 20 98/63 (75) 95 Intake and Output 07/19/18 07/20/18 19:00 07:00 Intake Total 1500 ml 440 ml Balance 1500 ml 440 ml Intake Oral 1500 ml 440 ml # Voids 3 Height (Feet): 5 Height (Inches): 1.00 Weight (Pounds): 110 General Appearance: confused Respiratory/Chest: lungs clear Abdomen: soft Дмитрий Dominguez MD Jul 20, 2018 22:01
[2018-07-21] VITALS: BP 129/59
[2018-07-21 03:40] VITALS: BP 117/59
--- NOTE | 2018-07-21 07:12 | NUR ---
HAND-OFF: Report given to Arron Asencio patient in stable condition.
--- NOTE | 2018-07-21 07:30 | NUR ---
NURSE NOTES: Patient sleeping in bed. No signs and symptoms of pain or distress at this time. Skin intact and dry. Dressing on left axillary dry and intact. IV dressing intact and dry. Bed lowest position. Call light within reach. Will continue to monitor.
[2018-07-21 08:00] VITALS: BP 125/84
[2018-07-21] MEDS: Multivitamin w/Minerals tab ORAL SCH (09:33)
[2018-07-21] MEDS: Aspirin EC 81mg tab ORAL SCH (09:34)
[2018-07-21] MEDS: Milk of Magnesia 30ml Ud ORAL SCH (09:34)
[2018-07-21] MEDS: Docusate 100mg cap ORAL SCH ×2 (09:34→20:17)
[2018-07-21] MEDS: Nuedexta Capsule 20/10mg ORAL SCH ×2 (09:34→17:21)
[2018-07-21] MEDS: Atenolol 25mg tab ORAL SCH (09:35)
--- NOTE | 2018-07-21 10:35 | NUR ---
NURSE NOTES: Got a phone call from [facility] that patient positive for MRSA. 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
--- NOTE | 2018-07-21 11:21 | General Progress Note ---
Assessment/Plan Problem List: (1) Dementia with behavioral disturbance ICD Codes: F03.91 - Unspecified dementia with behavioral disturbance SNOMED: 0706078068585 (2) Acute metabolic encephalopathy ICD Codes: G93.41 - Metabolic encephalopathy SNOMED: 68556263, 570025362 Status: not improved Assessment/Plan Seroquel 12.5mg po tid Seroquel 25mg po q6hr prn Haldol im Remeron 30mg po qhs restraints as needed Subjective Date patient seen: Jul 21, 2018 Neurologic/Psychiatric: Reports: anxiety, depressed, emotional problems Allergies: Coded Allergies: LORAZEPAM (Verified Allergy, Unknown, 07/18/18) Objective Last 24 Hour Vital Signs Date Time Temp Pulse Resp B/P (MAP) Pulse Ox O2 Delivery O2 Flow Rate FiO2 07/21/18 09:35 67 125/84 07/21/18 09:35 67 125/84 07/21/18 09:00 Room Air 07/21/18 08:00 97.5 67 18 125/84 (98) 99 07/21/18 03:40 98.4 69 20 117/59 (78) 96 07/21/18 00:00 98.2 69 20 129/59 (82) 95 07/20/18 21:00 Room Air 07/20/18 19:52 98.5 70 20 117/69 (85) 96 07/20/18 16:00 97.3 69 20 114/48 (70) 94 07/20/18 12:00 97.3 66 22 109/85 (93) 94 Intake and Output 07/20/18 07/21/18 19:00 07:00 Intake Total 840 ml Balance 840 ml Intake Oral 840 ml # Voids 1 6 # Bowel Movements 1 Height (Feet): 5 Height (Inches): 1.00 Weight (Pounds): 108 General Appearance: WD/WN, alert, moderate distress, agitated Neurologic: disoriented, depressed affect Malachi Hernandez MD Jul 21, 2018 11:21
[2018-07-21 12:00] VITALS: BP 121/51
[2018-07-21] MEDS: Vancomycin 500mg/D5W 110ml IVPB SCH ×2 (12:14)
--- NOTE | 2018-07-21 13:41 | Infectious Diseases Prog Note ---
Assessment/Plan Assessment/Plan A Left axillary abscess with MRSA Advanced dementia with psychosis, diabetes mellitus, hypertension gastroesophageal reflux disease. PLAN: 1. We will continue with IV vancomycin. 2. At time of discharge PO Bactrim Subjective ROS Limited/Unobtainable: Yes Allergies: Coded Allergies: LORAZEPAM (Verified Allergy, Unknown, 07/18/18) Objective Vital Signs Last 24 Hour Vital Signs Date Time Temp Pulse Resp B/P (MAP) Pulse Ox O2 Delivery O2 Flow Rate FiO2 07/21/18 12:00 97.5 66 16 121/51 (74) 98 07/21/18 09:35 67 125/84 07/21/18 09:35 67 125/84 07/21/18 09:00 Room Air 07/21/18 08:00 97.5 67 18 125/84 (98) 99 07/21/18 03:40 98.4 69 20 117/59 (78) 96 07/21/18 00:00 98.2 69 20 129/59 (82) 95 07/20/18 21:00 Room Air 07/20/18 19:52 98.5 70 20 117/69 (85) 96 07/20/18 16:00 97.3 69 20 114/48 (70) 94 Height (Feet): 5 Height (Inches): 1.00 Weight (Pounds): 108 General Appearance: no acute distress HEENT: mucous membranes moist Respiratory/Chest: lungs clear Cardiovascular: normal rate Abdomen: soft, non tender Extremities: no edema Skin: ulcers, other - left axilla Neurologic/Psychiatric: other - sleeping Microbiology Date/Time Source Procedure Growth Status 07/19/18 12:37 Axilla Left Gram Stain - Final Resulted 07/19/18 12:37 Wound Culture - Preliminary Staphylococcus Aureus - Mrsa Resulted Current Medications Medications (Trade) Dose Ordered Sig/Constantin Route PRN Reason Start Time Stop Time Status Last Admin Dose Admin Acetaminophen (Tylenol) 650 mg Q6H PRN ORAL Mild Pain/Temp > 100.5 07/18/18 16:00 08/17/18 15:59 07/19/18 18:43 Amlodipine Besylate (Norvasc) 5 mg DAILY ORAL 07/19/18 09:00 08/18/18 08:59 07/21/18 09:35 Aspirin (Ecotrin) 81 mg DAILY ORAL 07/19/18 09:00 08/18/18 08:59 07/21/18 09:34 Atenolol (Tenormin) 25 mg DAILY ORAL 07/19/18 09:00 08/18/18 08:59 07/21/18 09:35 Atorvastatin Calcium (Lipitor) 10 mg BEDTIME ORAL 07/18/18 21:00 08/17/18 20:59 07/20/18 21:03 Dextromethorphan/ Quinidine (Nuedexta Capsule) 1 cap BID ORAL 07/18/18 18:00 08/17/18 17:59 07/21/18 09:34 Docusate Sodium (Colace) 100 mg Q12HR ORAL 07/18/18 21:00 08/17/18 20:59 07/21/18 09:34 Ferrous Sulfate (Feosol) 325 mg DAILY ORAL 07/19/18 09:00 08/18/18 08:59 07/21/18 09:34 Haloperidol Lactate (Haldol) 5 mg Q6H PRN IM Agitation 07/19/18 12:30 08/18/18 12:29 Lamotrigine (LaMICtal) 25 mg DAILY ORAL 07/19/18 09:00 08/18/18 08:59 07/21/18 09:33 Magnesium Hydroxide (Mom) 30 ml DAILY ORAL 07/19/18 09:00 08/18/18 08:59 07/21/18 09:34 Mirtazapine (Remeron) 30 mg BEDTIME ORAL 07/19/18 21:00 08/18/18 20:59 07/20/18 21:03 Multivitamins Therapeutic (Therapeutic Multivitamin) 1 ea DAILY ORAL 07/19/18 09:00 08/18/18 08:59 07/21/18 09:33 Primidone (Mysoline) 50 mg DAILY ORAL 07/19/18 09:00 08/18/18 08:59 07/21/18 09:33 Primidone (Mysoline) 50 mg QHS ORAL 07/18/18 21:00 08/17/18 20:59 07/20/18 21:02 Quetiapine Fumarate (SEROquel) 12.5 mg TID ORAL 07/19/18 13:00 08/18/18 12:59 07/21/18 12:14 Quetiapine Fumarate (SEROquel) 25 mg Q6H PRN ORAL For Anxiety 07/19/18 11:45 08/18/18 11:44 07/19/18 11:54 Vancomycin HCl (Vanco rx to dose) 1 ea DAILY PRN MISC Per rx protocol 07/19/18 10:45 08/18/18 10:44 Vancomycin HCl 500 mg/Dextrose 110 ml @ 110 mls/hr Q24H IVPB 07/19/18 12:00 07/24/18 11:59 07/21/18 12:14 Zak Cisse MD Jul 21, 2018 13:41
--- NOTE | 2018-07-21 13:45 | NUR ---
NURSE NOTES: Given report to Zak Lay regarding wound MRSA.
--- NOTE | 2018-07-21 14:12 | Surgery Progress Note ---
Surgery Progress Note Subjective Additional Comments abscess near resolved. mild serous drainage. erythema improved. patient not very complaint with exam Objective Last 24 Hour Vital Signs Date Time Temp Pulse Resp B/P (MAP) Pulse Ox O2 Delivery O2 Flow Rate FiO2 07/21/18 12:00 97.5 66 16 121/51 (74) 98 07/21/18 09:35 67 125/84 07/21/18 09:35 67 125/84 07/21/18 09:00 Room Air 07/21/18 08:00 97.5 67 18 125/84 (98) 99 07/21/18 03:40 98.4 69 20 117/59 (78) 96 07/21/18 00:00 98.2 69 20 129/59 (82) 95 07/20/18 21:00 Room Air 07/20/18 19:52 98.5 70 20 117/69 (85) 96 07/20/18 16:00 97.3 69 20 114/48 (70) 94 I&O Intake and Output 07/20/18 07/21/18 18:59 06:59 Intake Total 840 ml Balance 840 ml Intake Oral 840 ml # Voids 1 6 # Bowel Movements 1 Dressing: saturated Wound: clean Drains: none Cardiovascular: RSR Respiratory: clear Abdomen: soft, flat, non-tender Extremities: no cyanosis Plan Problems: (1) Axillary abscess Assessment & Plan: 82 year old female with left axilla abscess. afebrile, HD stable, labs noted. 3-4cm indurated left axilla abscess with spontaneous drainage noted. tender on exam -left axilla abscess improved; cellulitis improved. drainage serous now. does not need I&D fortunately. -wash left axilla and apply gauze over wound daily and prn saturation -IV abx as per ID -trend labs -will follow with recs -d/c planning thank you Finn Pappas Jul 21, 2018 14:12
[2018-07-21 16:00] VITALS: BP 100/86
--- NOTE | 2018-07-21 18:25 | NUR ---
NURSE NOTES: Patient transferred to [facility]. Given report to Ary ORTEGA. Patient in stable condition.
--- NOTE | 2018-07-21 18:30 | NUR ---
NURSE NOTES: Pt received from the 301. sleeping has one shirt as belongings. Placed in room next to nurses station for safety. Stable condition . Current paln of care will be followed
--- NOTE | 2018-07-21 19:15 | NUR ---
CASE MANAGEMENT: REVIEW SI: CELLULITIS T 97.5 HR 66 RR 16 BP 121/51 SAT 98% ROOM AIR IS: VANCO IV Q24HR MED/SURG STATUS DCP: PATIENT IS FROM [facility]
--- NOTE | 2018-07-21 19:30 | NUR ---
NURSE NOTES: Received patient on bed awake, no s/s of distress, IV line intact. Bed in low position and locked, will continue to monitor.
--- NOTE | 2018-07-21 19:52 | NUR ---
HAND-OFF: Report given to Reymundo ORTEGA.
[2018-07-21 20:00] VITALS: BP 138/57
--- NOTE | 2018-07-21 22:12 | General Progress Note ---
Assessment/Plan Problem List: (1) Dementia ICD Codes: F03.90 - Unspecified dementia without behavioral disturbance SNOMED: 41168268 (2) Cellulitis ICD Codes: L03.90 - Cellulitis, unspecified SNOMED: 884981020 (3) Anxiety ICD Codes: F41.9 - Anxiety disorder, unspecified SNOMED: 75500780 (4) Abscess ICD Codes: L02.91 - Cutaneous abscess, unspecified SNOMED: 447982171 (5) Axillary abscess ICD Codes: L02.419 - Cutaneous abscess of limb, unspecified SNOMED: 10443591 (6) Dementia with behavioral disturbance ICD Codes: F03.91 - Unspecified dementia with behavioral disturbance SNOMED: 7805489030056 Status: progressing Assessment/Plan afebrile axillary abscess.pus coming out and improving dc planning is calm so dc sitter abx per id psychosi Subjective ROS Limited/Unobtainable: Yes Allergies: Coded Allergies: LORAZEPAM (Verified Allergy, Unknown, 07/18/18) Subjective agitated and confused Objective Last 24 Hour Vital Signs Date Time Temp Pulse Resp B/P (MAP) Pulse Ox O2 Delivery O2 Flow Rate FiO2 07/21/18 21:00 Room Air 07/21/18 20:00 98.1 70 16 138/57 (84) 98 07/21/18 16:00 98.3 66 18 100/86 (91) 99 07/21/18 12:00 97.5 66 16 121/51 (74) 98 07/21/18 09:35 67 125/84 07/21/18 09:35 67 125/84 07/21/18 09:00 Room Air 07/21/18 08:00 97.5 67 18 125/84 (98) 99 07/21/18 03:40 98.4 69 20 117/59 (78) 96 07/21/18 00:00 98.2 69 20 129/59 (82) 95 Intake and Output 07/20/18 07/21/18 19:00 07:00 Intake Total 840 ml Balance 840 ml Intake Oral 840 ml # Voids 1 6 # Bowel Movements 1 Height (Feet): 5 Height (Inches): 1.00 Weight (Pounds): 108 Neck: supple Cardiovascular: normal rate Respiratory/Chest: lungs clear Abdomen: soft Дмитрий Dominguez MD Jul 21, 2018 22:11
[2018-07-22] VITALS: BP 99/60
[2018-07-22 04:00] VITALS: BP 110/50
--- NOTE | 2018-07-22 07:10 | NUR ---
HAND-OFF: Report given to Ary ORTEGA .
--- NOTE | 2018-07-22 07:41 | NUR ---
NURSE NOTES: Pt received awake talking to self. Remains near nurses station. All anticipated needs will require to be met 2 to baseline, mental status. Current plan of care will be followed
[2018-07-22 07:44] LABS: BASOPHILS % (AUTO) 1.5 % (0.0-2.0); EOSINOPHILS % (AUTO) 5.6 % (0.0-3.0); HEMOGLOBIN 12.8 G/DL (12.0-16.0); LYMPHOCYTES % (AUTO) 19.6 % (20.0-45.0); MEAN CORPUSCULAR VOLUME 86 FL (80-99); MONOCYTES % (AUTO) 8.4 % (1.0-10.0); NEUTROPHILS % (AUTO) 64.9 % (45.0-75.0); PLATELET COUNT 398 K/UL (150-450); RED BLOOD COUNT 4.64 M/UL (4.20-5.40); RED CELL DISTRIBUTION WIDTH 12.5 % (11.6-14.8); WHITE BLOOD COUNT 4.1 K/UL (4.8-10.8)
[2018-07-22 07:53] LABS: ANION GAP 6 mmol/L (5-15); BLOOD UREA NITROGEN 16 mg/dL (7-18); CALCIUM 9.4 MG/DL (8.5-10.1); CARBON DIOXIDE 29 MMOL/L (21-32); CHLORIDE 103 MMOL/L (98-107); POTASSIUM 4.4 MMOL/L (3.5-5.1); SODIUM 138 MMOL/L (136-145)
[2018-07-22 08:00] VITALS: BP 132/68
[2018-07-22] MEDS: Docusate 100mg cap ORAL SCH (10:00)
[2018-07-22] MEDS: Milk of Magnesia 30ml Ud ORAL SCH (10:00)
[2018-07-22] MEDS: Aspirin EC 81mg tab ORAL SCH (10:00)
[2018-07-22] MEDS: Multivitamin w/Minerals tab ORAL SCH (10:02)
[2018-07-22] MEDS: Nuedexta Capsule 20/10mg ORAL SCH (10:02)
[2018-07-22 10:04] VITALS: BP 137/69
[2018-07-22] MEDS: Atenolol 25mg tab ORAL SCH (10:04)
--- NOTE | 2018-07-22 11:03 | NUR ---
*-* DISCHARGE PLANNING *-* PATIENT HAS BEEN REFERRED BACK TO: [facility] P:[phone] F:[phone]
--- NOTE | 2018-07-22 11:37 | Infectious Diseases Prog Note ---
Assessment/Plan Assessment/Plan A Left axillary abscess with MRSA Advanced dementia with psychosis, diabetes mellitus, hypertension gastroesophageal reflux disease. PLAN: 1. Can be discharged with PO Bactrim X 4 days Subjective ROS Limited/Unobtainable: Yes Allergies: Coded Allergies: LORAZEPAM (Verified Allergy, Unknown, 07/18/18) Objective Vital Signs Last 24 Hour Vital Signs Date Time Temp Pulse Resp B/P (MAP) Pulse Ox O2 Delivery O2 Flow Rate FiO2 07/22/18 10:04 77 137/69 07/22/18 10:03 79 137/69 07/22/18 04:00 97.4 56 16 110/50 (70) 96 07/22/18 00:00 98.0 60 16 99/60 (73) 96 07/21/18 21:00 Room Air 07/21/18 20:00 98.1 70 16 138/57 (84) 98 07/21/18 16:00 98.3 66 18 100/86 (91) 99 07/21/18 12:00 97.5 66 16 121/51 (74) 98 Height (Feet): 5 Height (Inches): 1.00 Weight (Pounds): 108 General Appearance: no acute distress HEENT: mucous membranes moist Respiratory/Chest: lungs clear Cardiovascular: normal rate Abdomen: soft, non tender Extremities: no edema Skin: ulcers, other - left axilla Neurologic/Psychiatric: alert, disoriented Microbiology Date/Time Source Procedure Growth Status 07/19/18 12:37 Axilla Left Gram Stain - Final Complete 07/19/18 12:37 Wound Culture - Final Staphylococcus Aureus - Mrsa Complete Laboratory Tests Test 07/22/18 05:14 White Blood Count 4.1 K/UL (4.8-10.8) L Red Blood Count 4.64 M/UL (4.20-5.40) Hemoglobin 12.8 G/DL (12.0-16.0) Hematocrit 40.0 % (37.0-47.0) Mean Corpuscular Volume 86 FL (80-99) Mean Corpuscular Hemoglobin 27.7 PG (27.0-31.0) Mean Corpuscular Hemoglobin Concent 32.1 G/DL (32.0-36.0) Red Cell Distribution Width 12.5 % (11.6-14.8) Platelet Count 398 K/UL (150-450) Mean Platelet Volume 5.8 FL (6.5-10.1) L Neutrophils (%) (Auto) 64.9 % (45.0-75.0) Lymphocytes (%) (Auto) 19.6 % (20.0-45.0) L Monocytes (%) (Auto) 8.4 % (1.0-10.0) Eosinophils (%) (Auto) 5.6 % (0.0-3.0) H Basophils (%) (Auto) 1.5 % (0.0-2.0) Sodium Level 138 MMOL/L (136-145) Potassium Level 4.4 MMOL/L (3.5-5.1) Chloride Level 103 MMOL/L (98-107) Carbon Dioxide Level 29 MMOL/L (21-32) Anion Gap 6 mmol/L (5-15) Blood Urea Nitrogen 16 mg/dL (7-18) Creatinine 1.0 MG/DL (0.55-1.30) Estimat Glomerular Filtration Rate mL/min (>60) Glucose Level 79 MG/DL (74-106) Calcium Level 9.4 MG/DL (8.5-10.1) Current Medications Medications (Trade) Dose Ordered Sig/Constantin Route PRN Reason Start Time Stop Time Status Last Admin Dose Admin Acetaminophen (Tylenol) 650 mg Q6H PRN ORAL Mild Pain/Temp > 100.5 07/18/18 16:00 08/17/18 15:59 07/19/18 18:43 Amlodipine Besylate (Norvasc) 5 mg DAILY ORAL 07/19/18 09:00 08/18/18 08:59 07/22/18 10:03 Aspirin (Ecotrin) 81 mg DAILY ORAL 07/19/18 09:00 08/18/18 08:59 07/22/18 10:00 Atenolol (Tenormin) 25 mg DAILY ORAL 07/19/18 09:00 08/18/18 08:59 07/22/18 10:04 Atorvastatin Calcium (Lipitor) 10 mg BEDTIME ORAL 07/18/18 21:00 08/17/18 20:59 07/21/18 20:16 Dextromethorphan/ Quinidine (Nuedexta Capsule) 1 cap BID ORAL 07/18/18 18:00 08/17/18 17:59 07/22/18 10:02 Docusate Sodium (Colace) 100 mg Q12HR ORAL 07/18/18 21:00 08/17/18 20:59 07/22/18 10:00 Ferrous Sulfate (Feosol) 325 mg DAILY ORAL 07/19/18 09:00 08/18/18 08:59 07/22/18 10:02 Haloperidol Lactate (Haldol) 5 mg Q6H PRN IM Agitation 07/19/18 12:30 08/18/18 12:29 Lamotrigine (LaMICtal) 25 mg DAILY ORAL 07/19/18 09:00 08/18/18 08:59 07/22/18 10:02 Magnesium Hydroxide (Mom) 30 ml DAILY ORAL 07/19/18 09:00 08/18/18 08:59 07/22/18 10:00 Mirtazapine (Remeron) 30 mg BEDTIME ORAL 07/19/18 21:00 08/18/18 20:59 07/21/18 20:16 Multivitamins Therapeutic (Therapeutic Multivitamin) 1 ea DAILY ORAL 07/19/18 09:00 08/18/18 08:59 07/22/18 10:02 Primidone (Mysoline) 50 mg DAILY ORAL 07/19/18 09:00 08/18/18 08:59 07/22/18 10:02 Primidone (Mysoline) 50 mg QHS ORAL 07/18/18 21:00 08/17/18 20:59 07/21/18 20:16 Quetiapine Fumarate (SEROquel) 12.5 mg TID ORAL 07/19/18 13:00 08/18/18 12:59 07/22/18 10:02 Quetiapine Fumarate (SEROquel) 25 mg Q6H PRN ORAL For Anxiety 07/19/18 11:45 08/18/18 11:44 07/19/18 11:54 Trimethoprim/ Sulfamethoxazole (Bactrim-DS) 1 tab Q12HR ORAL 07/22/18 21:00 07/29/18 20:59 Zak Cisse MD Jul 22, 2018 11:37
--- NOTE | 2018-07-22 11:51 | NUR ---
*-* DISCHARGE PLANNED *-* PATIENT IS DISCHARGE TO: [facility] ROOM# 21-C SKILLED T:[phone] FOR NURSE TO NURSE REPORT [facility] HAS BEEN ARRANGED FOR FORESTRY FACULTY MEMBER AT [address] SAL [id number] *-* TRIED CONTACTING FAMILY UNABLE TO LEAVE MESSAGE AND NO ANSWER REBEKAH MORA
--- NOTE | 2018-07-22 12:03 | General Progress Note ---
Assessment/Plan Problem List: (1) Dementia with behavioral disturbance ICD Codes: F03.91 - Unspecified dementia with behavioral disturbance SNOMED: 8233018618282 (2) Acute metabolic encephalopathy ICD Codes: G93.41 - Metabolic encephalopathy SNOMED: 60194992, 866834205 Status: unchanged Assessment/Plan Seroquel 12.5mg po tid Seroquel 25mg po q6hr prn Haldol im Remeron 30mg po qhs restraints as needed Subjective Neurologic/Psychiatric: Reports: anxiety, emotional problems Allergies: Coded Allergies: LORAZEPAM (Verified Allergy, Unknown, 07/18/18) Subjective the pt cont to be agitated and disorganized. the pt is unable to be engaged. Objective Last 24 Hour Vital Signs Date Time Temp Pulse Resp B/P (MAP) Pulse Ox O2 Delivery O2 Flow Rate FiO2 07/22/18 10:04 77 137/69 07/22/18 10:03 79 137/69 07/22/18 09:00 Room Air 07/22/18 08:00 98.2 78 18 132/68 (89) 97 07/22/18 04:00 97.4 56 16 110/50 (70) 96 07/22/18 00:00 98.0 60 16 99/60 (73) 96 07/21/18 21:00 Room Air 07/21/18 20:00 98.1 70 16 138/57 (84) 98 07/21/18 16:00 98.3 66 18 100/86 (91) 99 Intake and Output 07/21/18 07/22/18 19:00 07:00 Intake Total 360 ml Balance 360 ml Intake Oral 360 ml # Voids 2 Laboratory Tests 07/22/18 05:14: White Blood Count 4.1L, Red Blood Count 4.64, Hemoglobin 12.8, Hematocrit 40.0, Mean Corpuscular Volume 86, Mean Corpuscular Hemoglobin 27.7, Mean Corpuscular Hemoglobin Concent 32.1, Red Cell Distribution Width 12.5, Platelet Count 398, Mean Platelet Volume 5.8L, Neutrophils (%) (Auto) 64.9, Lymphocytes (%) (Auto) 19.6L, Monocytes (%) (Auto) 8.4, Eosinophils (%) (Auto) 5.6H, Basophils (%) ( Auto) 1.5, Sodium Level 138, Potassium Level 4.4, Chloride Level 103, Carbon Dioxide Level 29, Anion Gap 6, Blood Urea Nitrogen 16, Creatinine 1.0, Estimat Glomerular Filtration Rate , Glucose Level 79, Calcium Level 9.4 Height (Feet): 5 Height (Inches): 1.00 Weight (Pounds): 108 General Appearance: alert, confused, moderate distress, agitated Neurologic: disoriented Malachi Hernandez MD Jul 22, 2018 12:03
--- NOTE | 2018-07-22 13:00 | NUR ---
NURSE NOTES: Pt brother Peg Moon, called facility, informed of pending, discharge back to [facility]. No further questions at this time. Pt is stable
[2018-07-22] MEDS ORDERED: BACTRIM DS TAB1 EAC1 ORAL (13:45)
--- NOTE | 2018-07-22 13:54 | Surgery Progress Note ---
Surgery Progress Note Subjective Symptoms: improved, pain absent, tolerating diet Objective Last 24 Hour Vital Signs Date Time Temp Pulse Resp B/P (MAP) Pulse Ox O2 Delivery O2 Flow Rate FiO2 07/22/18 10:04 77 137/69 07/22/18 10:03 79 137/69 07/22/18 09:00 Room Air 07/22/18 08:00 98.2 78 18 132/68 (89) 97 07/22/18 04:00 97.4 56 16 110/50 (70) 96 07/22/18 00:00 98.0 60 16 99/60 (73) 96 07/21/18 21:00 Room Air 07/21/18 20:00 98.1 70 16 138/57 (84) 98 07/21/18 16:00 98.3 66 18 100/86 (91) 99 I&O Intake and Output 07/21/18 07/22/18 19:00 07:00 Intake Total 360 ml Balance 360 ml Intake Oral 360 ml # Voids 2 Dressing: saturated Wound: clean, other Drains: none Cardiovascular: RSR Respiratory: clear Abdomen: soft, flat, non-tender, non-distended Extremities: no edema, no tenderness, no cyanosis Laboratory Tests Test 07/22/18 05:14 White Blood Count 4.1 K/UL (4.8-10.8) L Red Blood Count 4.64 M/UL (4.20-5.40) Hemoglobin 12.8 G/DL (12.0-16.0) Hematocrit 40.0 % (37.0-47.0) Mean Corpuscular Volume 86 FL (80-99) Mean Corpuscular Hemoglobin 27.7 PG (27.0-31.0) Mean Corpuscular Hemoglobin Concent 32.1 G/DL (32.0-36.0) Red Cell Distribution Width 12.5 % (11.6-14.8) Platelet Count 398 K/UL (150-450) Mean Platelet Volume 5.8 FL (6.5-10.1) L Neutrophils (%) (Auto) 64.9 % (45.0-75.0) Lymphocytes (%) (Auto) 19.6 % (20.0-45.0) L Monocytes (%) (Auto) 8.4 % (1.0-10.0) Eosinophils (%) (Auto) 5.6 % (0.0-3.0) H Basophils (%) (Auto) 1.5 % (0.0-2.0) Sodium Level 138 MMOL/L (136-145) Potassium Level 4.4 MMOL/L (3.5-5.1) Chloride Level 103 MMOL/L (98-107) Carbon Dioxide Level 29 MMOL/L (21-32) Anion Gap 6 mmol/L (5-15) Blood Urea Nitrogen 16 mg/dL (7-18) Creatinine 1.0 MG/DL (0.55-1.30) Estimat Glomerular Filtration Rate mL/min (>60) Glucose Level 79 MG/DL (74-106) Calcium Level 9.4 MG/DL (8.5-10.1) Plan Problems: (1) Axillary abscess Assessment & Plan: 82 year old female with left axilla abscess. afebrile, HD stable, labs noted. 3-4cm indurated left axilla abscess with spontaneous drainage noted. tender on exam -left axilla abscess improved; cellulitis improved. drainage serous now. does not need I&D fortunately. -wash left axilla and apply gauze over wound daily and prn saturation -IV abx as per ID -trend labs -will follow with recs -d/c planning thank you Finn Pappas Jul 22, 2018 13:54
--- NOTE | 2018-07-22 14:13 | NUR ---
NURSE NOTES: Report given to Amber ORTEGA at [facility]. Informed that an incision and drainage was not done. Pt receiving Po antibiotic and will continue Bactrim DS two times a day for 4 additional days. Current plan of care will be follwed until discharge. Bed in safe position
--- NOTE | 2018-07-22 15:15 | NUR ---
NURSE NOTES: PRN of Seroquel given did not want to give scheduled dose to closely. 1/2 tablet given
--- NOTE | 2018-07-22 16:20 | NUR ---
NURSE NOTES: Pt discharged back to SNF . Report given to Amber ORTEGA. discharge packet given. Informed that pt required 1-1 feeding while here. Per report of nurse at facility pt is a feeder at the SNF as well. Provided with belongings 1 shirt. Unable to sign for belongings or discharge 2 to baseline
[2018-07-22] MEDS ORDERED: Bactrim-DS 1 tab ORAL SCH (21:00)
--- NOTE | 2018-07-23 12:15 | Discharge Summary ---
Discharge Summary Discharge Summary _ DATE OF ADMISSION: 07/18/2018 DATE OF DISCHARGE: 07/22/2018 DISCHARGED BY: Dr. Дмитрий Mendosa CONSULTANTS: Dr. Finn Cisse BRIEF HOSPITAL COURSE: Patient is an 82-year-old female, who presented to ED via EMS for complaints of skin rash/infection to the left axilla. History was limited. There was no reported fever. She was noted to be eating less than usual. She appeared to be uncomfortable for the past several days. On evaluation at ED, vital signs were stable. On examination, there was palpable fluctuance in the left axillary area with an opening. With minimal pressure, there was significant amount of pus drained. Blood work did not show any leukocytosis. Patient was afebrile. She was admitted for evaluation of abscess and cellulitis on the left axillary region. ID was consulted. Patient was given IV vancomycin. Surgical evaluation was done. There was a 3-4 cm indurated left axillary abscess with spontaneous drainage noted. Wound care was provided. Psychiatric evaluation was done. Patient had dementia and encephalopathy. She was given Seroquel 12.5 mg p.o. 3 times daily with 25 mg every 6 hours as needed. She was initially provided a sitter for patient safety. Sitter was continued. Patient was placed on restraints. Wound culture showed growth of MRSA. Blood culture did not isolate any growth. Antibiotic was switched to p.o. Bactrim. Abscess and cellulitis improved. Patient did not need any I&D. She was cleared for discharge. FINAL DIAGNOSES: Left axillary abscess with cellulitis with MRSA Dementia with behavioral disturbance Acute metabolic encephalopathy Diabetes mellitus Hypertension GERD DISPOSITION: Patient was discharged to a SNF. DISCHARGE MEDICATIONS: Refer to Discharge Medication List. I have been assigned to complete a discharge summary on this account, I was not involved with the patient's management. Dominga Rowell NP Jul 23, 2018 12:15
== END 2018-07-22 16:22 | DRG 602 ==
LOC: EDBD 12:48 → EMR 12:55 → 3E 13:14 → EDBEDREQ 13:20 → 4E 07-21 18:15
DX: L02.412 Cutaneous abscess of left axilla (principal); G93.41 Metabolic encephalopathy; F03.91 Unspecified dementia, unspecified severity, with behavioral disturbance; F41.9 Anxiety disorder, unspecified; E11.9 Type 2 diabetes mellitus without complications; I10 Essential (primary) hypertension; K21.9 Gastro-esophageal reflux disease without esophagitis; B95.62 Methicillin resistant Staphylococcus aureus infection as the cause of diseases classified elsewhere; Z91.19 Patient's noncompliance with other medical treatment and regimen
CPT/HCPCS: 36415; 80048; 80053; 82550; 82553; 85025; 87040; 87070; 87181; 87205; 96365; 96372; 99285